=== PATIENT | male | born 1935 | race Caucasian/White ===

== ENCOUNTER 2025-04-19 13:53 | Inpatient (IN) | payer MEDICARE, SELFPAY ==
[2025-04-19] VITALS (7 sets, daily range): BP systolic 149–166; BP diastolic 71–92; PULSE 67–88; RESP 17–20; TEMP 36.6–37.2; O2SAT 95–100; BMI 26.3; BMI 24.2
--- NOTE | 2025-04-19 14:12 | EKG12_ITS ---
Test Reason : FALLS Blood Pressure : */* mmHG Vent. Rate : 82 BPM Atrial Rate : 82 BPM P-R Int : 184 ms QRS Dur : 140 ms QT Int : 422 ms P-R-T Axes : 57 -37 8 degrees QTcB Int : 493 ms Sinus rhythm with occasional Premature ventricular complexes Left axis deviation Right bundle branch block Inferior infarct , age undetermined Abnormal ECG Confirmed by SARAH LAINEZ ([id number]), subeditor NEGRA COFFMAN ([id number]) on 04/22/2025 9:08:05 AM Referred By: Confirmed By: SARAH LAINEZ
--- NOTE | 2025-04-19 14:12 | CT_ITS ---
PROCEDURE: BRAIN/HEAD WITHOUT CONTRAST; SPINE CERVICAL WITHOUT CONTRAS 04/19/2025 REASON FOR EXAM: FALLS; FALL TECHNIQUE: Procedure Code: CTBR; CTSPC Modality: CT Procedure: BRAIN/HEAD WITHOUT CONTRAST; SPINE CERVICAL WITHOUT CONTRAS Coronal and Sagittal reconstruction series were provided. One or more dose reduction techniques were used (e.g., Automated exposure control, adjustment of the mA and/or kV according to patient size, use of iterative reconstruction technique. COMPARISON: None available. FINDINGS: There is no extra-axial or intra-axial intracranial hemorrhage. No mass effect or midline shift is seen. Generalized intracranial volume loss and findings compatible with chronic microvascular white matter ischemia. There is normal cotto-white matter differentiation. The posterior fossa is grossly unremarkable. The skull is unremarkable. Visualized paranasal sinuses are clear. The mastoid air cells show normal translucency. The cervical alignment is intact. No acute cervical spine fracture is identified. The vertebral body heights are intact. No suspicious osseous lesions are identified. The craniocervical junction appears intact. There is no prevertebral soft tissue swelling. Advanced degenerate changes throughout the cervical spine with anterior bridging osteophytes noted from C2-C7. No severe neural foraminal or spinal canal stenosis.. The visualized lung apices are unremarkable. CT/Brain/Head without Contrast IMPRESSION: 1. No intracranial hemorrhage. No mass effect or midline shift. 2. Chronic involutional and ischemic gliotic white matter changes. 3. No evidence of acute cervical spine fracture or traumatic subluxation. 4. 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 Reading Location: [facility]
--- NOTE | 2025-04-19 14:13 | EDS_ITS ---
HPI History of Present Illness Chief Complaint: Fall Narrative Narrative: Patient is a 89-year-old male with who is unable to provide accurate history of present illness who presents to the emergency department with a chief complaint of multiple falls in the last week. According to EMS he fell yesterday was able to get up back in bed and has been there since 830. We do not have any records here to do chart review on therefore we will wait for members to arrive for further information. PFSH PFS Medical History unable to obtain Allergy/AdvReac Type Severity Reaction Status Date / Time No Known Allergies Allergy Verified 04/19/25 14:07 Social History Smoking Status: Former smoker ROS ROS ED ROS Narrative Constitutional: Denies any fevers, chills, headaches Eyes: Denies double vision Cardiovascular: Denies chest pain Respiratory: Shortness of breath Abdomen: Denies abdominal pain nausea vomit diarrhea : Denies urinary symptoms Neurological: Complains of generalized weakness denies numbness, tingling Musculoskeletal: Denies any pain Skin: Denies any rashes or lesions EXAM Physical Exam Narrative Exam Narrative: General: Patient was lying in bed rest comfortably did not appear to be in acute distress Head: Atraumatic, normocephalic Eyes: PERRL bilaterally, EOMI bilaterally, no conjunctival injection noted Neck: Soft, supple, trachea midline Cardiovascular: Regular rate and rhythm Respiratory: Clear to auscultation bilaterally Abdomen: Soft, nondistended, no tenderness to palpation no rebound or guarding on exam Musculoskeletal: All bony prominence palpated joints taken to full range of motion no pain elicited Extremities: +3/5 strength noted in the bilateral upper and lower extremities, no pedal edema no exam Neurological: Patient following commands and was able to tell us his name and that he was at the hospital Skin: Warm, dry, patient has anterior hassan abrasion noted on the right lower extremity no concern for infection at this point time Const Vital Signs: 04/19/25 13:54 04/19/25 14:08 04/19/25 16:00 Temperature 98.4 F 98.2 F Temperature Source Oral Oral Pulse Rate 88 80 Respiratory Rate 20 H 20 H Respiratory Effort Normal Non-Labored Respiratory Depth Normal Respiratory Pattern Normal Blood Pressure 152/78 H 166/80 H Blood Pressure Mean 102 108 Pulse Ox 99 97 Oxygen Delivery Method Room Air Room Air Room Air 04/19/25 17:00 04/19/25 17:20 Temperature 98.1 F 97.9 F Temperature Source Oral Pulse Rate 67 68 Respiratory Rate 19 H 17 Respiratory Effort Respiratory Depth Respiratory Pattern Blood Pressure 161/88 H 159/78 H Blood Pressure Mean 112 105 Pulse Ox 97 97 Oxygen Delivery Method Room Air MDM MDM MDM Narrative Medical decision making narrative: Patient is a 89-year-old male who presents to the emergency department the chief complaint of multiple falls. On the differential diagnose includes but not limited to intracranial hemorrhage, cervical spine fracture, electrolyte O'Ryan, UTI, generalized weakness. Once the workup is obtained and reviewed he will be reevaluated. Patient CBC was significant for leukocytosis of 18,000, hemoglobin 13.7, plate count 155. Patient sodium is 139, potassium normal 4.1, creatinine was 1.29 indicating acute kidney injury, total bilirubin elevated 4.19, AST and ALT are 15 and 18 respectively. Patient lipase noted be 10. Patient's urinalysis reviewed and showed positive nitrates 500 leukocyte esterase. Patient's x-ray of the pelvis reviewed by myself by radiology and showed degenerative changes noted no acute fracture or dislocation. Patient CT head brain without contrast showed no acute intracranial hemorrhage or mass effect no midline shift. Chronic involutional and ischemic with white matter changes. No evidence of acute cervical spine fracture or traumatic subluxation. Did add on a CT ab pelvis with IV contrast given his abnormal elevated bilirubin. Patient is EKG reviewed hide sinus rhythm with PVCs noted with a rate of 82 bpm with WI interval normal at 184. Patient CT ab pelvis with IV contrast showed multifocal lower lobe consolidations may reflect underlying pneumonia. Mild urinary bladder wall and mild surrounding fat stranding compatible with cystitis in the appropriate clinical setting. Urinalysis pending. Diverticulosis without diverticulitis. Heterogeneous prostamegaly. 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 Additional details as discussed. Patient test negative for COVID flu RSV. At this point time will discuss case with hospitalist for admission for generalized weakness and multiple falls as well as questionable pneumonia with UTI. Patient was given Rocephin and azithromycin at 1649. Discussed case with hospitalist Dr. Hudson who accept patient for admission. Patient notified is agreeable to plan all course concerns answered. Patient's daughter was also notified. Lab Data Labs: Laboratory Results - last 24 hr 04/19/25 04/19/25 14:20 16:00 WBC 18.6 H RBC 4.21 L Hgb 13.7 Hct 39.3 L MCV 93.3 MCH 32.5 H MCHC 34.9 RDW Std Deviation 46.8 H RDW Coeff of Mikki 13.7 Plt Count 155 MPV 10.0 Immature Gran % (Auto) 0.800 Neut % (Auto) 83.6 H Lymph % (Auto) 7.0 L [place] % (Auto) 8.4 Eos % (Auto) 0.0 Baso % (Auto) 0.2 Absolute Neuts (auto) 15.6 H Absolute Lymphs (auto) 1.31 Nucleated RBC % 0 Sodium 139 Potassium 4.1 Chloride 105 Carbon Dioxide 22.2 Anion Gap 12 BUN 27 H Creatinine 1.29 H Estim Creat Clear Calc 44.28 L Est GFR (MDRD) Non-Af 54 L BUN/Creatinine Ratio 20.5 H Glucose 122 H Calcium 8.1 Total Bilirubin 4.19 H AST 50 H ALT 18 Alkaline Phosphatase 80 Total Protein 5.1 L Albumin 3.3 L Globulin 1.8 L Albumin/Globulin Ratio 1.8 Lipase 10 L Urine Color Yellow Urine Clarity Sl. Cloudy Urine pH 6.0 Ur Specific [place] 1.020 Urine Protein 100 H Urine Glucose (UA) Normal Urine Ketones 15 H Urine Occult Blood 250 H Urine Nitrite Positive H Urine Bilirubin Negative Urine Urobilinogen Normal Ur Leukocyte Esterase 500 H Radiography Diagnostic Testing: Clinical Impression(s) from Imaging Studies Brain CT 04/19/25 14:12 IMPRESSION: 1. No intracranial hemorrhage. No mass effect or midline shift. 2. Chronic involutional and ischemic gliotic white matter changes. 3. No evidence of acute cervical spine fracture or traumatic subluxation. 4. 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 Reading Location: [facility] Cervical Spine CT 04/19/25 14:12 IMPRESSION: 1. No intracranial hemorrhage. No mass effect or midline shift. 2. Chronic involutional and ischemic gliotic white matter changes. 3. No evidence of acute cervical spine fracture or traumatic subluxation. 4. 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 Reading Location: [facility] Abdomen/Pelvis CT 04/19/25 15:45 IMPRESSION: 1. Multifocal lower lobe consolidations may reflect underlying pneumonia. 2. Mild urinary bladder wall thickening with mild surrounding fat stranding compatible with cystitis in the appropriate clinical setting. Please correlate with urinalysis. 3. Diverticulosis without evidence of diverticulitis. 4. Heterogeneous prostatomegaly. 5. 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 Consider MRCP for further characterization. 6. Additional details as discussed above. Reading Location: [facility] Pelvis X-Ray 04/19/25 15:50 IMPRESSION: Degenerative changes are seen of the visualized lower lumbar spine. Residual contrast material is seen within the visualized urinary tract collecting system. At least minimal sacroiliac joint degenerative changes are noted. Mild degenerative changes of the bilateral hip joints are seen, without significant joint space narrowing noted. No evidence of femoral head osteonecrosis. On the solitary view obtained, no fracture or dislocation is seen. If clinical concern persists, short-term follow-up imaging may be obtained to rule out a currently occult fracture. Reading Location: [id number] Discharge Plan Dx/Rx/DC Orders Clinical Impression: Generalized weakness, Multiple falls, Acute kidney injury, Pneumonia Disposition Disposition: Acute Care [facility]
[2025-04-19] MEDS: 0.9% Normal Saline (1000mL) 1,000 ML 999 ML IV (14:15)
[2025-04-19 14:42] LABS: Hematocrit 39.3 % (40-54); Hemoglobin 13.7 g/dL (13.0-16.5); Immature Granulocytes Count 0.150 X10^3/uL (0.0-0.0); Mean Corp Hgb Conc 34.9 g/dL (32-36); Mean Corpuscular Volume 93.3 fL (80-94); Mean Platelet Vol. 10.0 fl (6.2-12.0); NRBC Flagged by Analyzer 0 % (0-5); POSITIVE DIFFERENTIAL YES; Platelet Count 155 K/mm3 (150-450); RBC Distribution Width CV 13.7 % (11.6-14.6); RBC Distribution Width SD 46.8 fl (35.1-43.9); Red Blood Count 4.21 M/mm3 (4.6-6.2); White Blood Count 18.6 K/mm3 (4.4-11.0)
[2025-04-19 14:44] LABS: Differential Indicated SCAN CRITERIA MET
[2025-04-19 15:11] LABS: AST(SGOT) 50 U/L (<=37); Alanine Aminotransfer ALT/SGPT 18 U/L (<=46); Albumin, Serum 3.3 g/dL (3.4-4.8); Alkaline Phosphatase 80 U/L (40-129); Anion Gap 12 (5-15); BUN 27 mg/dL (4-19); BUN/Creat Ratio 20.5 RATIO (10-20); Calcium,Total 8.1 mg/dL (7.6-11.0); Carbon Dioxide 22.2 mmol/L (21.0-32.0); Chloride 105 mmol/L (98-108); Estimated Creatinine Clearance 44.28 ml/min (50-250); Globulin 1.8 g/dL (2.2-4.2); Glucose 122 mg/dL (70-99); Lipase 10 U/L (13-75); Potassium 4.1 mmol/L (3.3-5.1)
--- NOTE | 2025-04-19 15:45 | CT_ITS ---
PROCEDURE: ABDOMEN/PELVIS W IV CONT ONLY 04/19/2025 REASON FOR EXAM: WEAKNESS, MULTIPLE FALLS TECHNIQUE: Procedure Code: [id number] Modality: CT Procedure: ABDOMEN/PELVIS W IV CONT ONLY Coronal and Sagittal reconstruction series were provided. CONTRAST: Isovue-300 VOLUME: 100 mL One or more dose reduction techniques were used (e.g., Automated exposure control, adjustment of the mA and/or kV according to patient size, use of iterative reconstruction technique. RADIATION DOSE SUMMARY: DLP: 1016.16 mGycm COMPARISON: None available. FINDINGS: Lower chest: Bilateral lower low lobe multifocal consolidations. Trace bilateral pleural effusions. Liver: Normal size. Normal morphology and enhancement. No enhancing mass. Gallbladder and biliary ducts: Surgically absent. Normal caliber intrahepatic and common bile ducts. Pancreas:Atrophic pancreas. 8 x 7 mm pancreatic tail cystic lesion. No ductal dilatation or mass. No peripancreatic fluid. Spleen: Unremarkable. Adrenal glands: Unremarkable. Kidneys and ureters: Normal renal size, morphology, and enhancement. No nephroureterolithiasis or hydronephrosis. Multiple left parapelvic renal cysts. Nonspecific bilateral perinephric edema.. Urinary bladder: Mild thickening of the urinary bladder wall. There is mild fat stranding surrounding the bladder. GI: Unremarkable stomach and duodenum. Normal caliber small bowel and large bowel.Colonic diverticulosis without evidence of diverticulitis. Appendix: Not visualized. No secondary signs of acute appendicitis. Peritoneum: No ascites. Lymph nodes: No lymphadenopathy. Vasculature: Portal, splenic, and superior mesenteric veins are patent. No abdominal aortic aneurysm. Atherosclerotic calcification of the abdominal aorta and common iliac arteries. Reproductive organs: Heterogeneous appearing prostatic gland measuring a proximally 5.4 x 4.0 x 4.1 cm. The seminal vesicles are symmetrical. Musculoskeletal and soft tissues: No aggressive osseous lesions. Chronic appearing deformity of the inferior endplate of T12 vertebral body. Unremarkable soft tissues. CT/Abdomen/Pelvis W IV Cont ONLY IMPRESSION: 1. Multifocal lower lobe consolidations may reflect underlying pneumonia. 2. Mild urinary bladder wall thickening with mild surrounding fat stranding com patible with cystitis in the appropriate clinical setting. Please correlate with urinalysis. 3. Diverticulosis without evidence of diverticulitis. 4. Heterogeneous prostatomegaly. 5. 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 Consider MRCP for further charac terization. 6. Additional details as discussed above. Reading Location: [facility]
--- NOTE | 2025-04-19 15:50 | RAD_ITS ---
PROCEDURE: PELVIS 1 OR 2 VIEWS 04/19/2025 REASON FOR EXAM: FALL TECHNIQUE: Procedure Code: RADPEL Modality: DX Procedure: PELVIS 1 OR 2 VIEWS COMPARISON: None. RAD/Pelvis 1 or 2 Views IMPRESSION: Degenerative changes are seen of the visualized lower lumbar spine. Residual contrast material is seen within the visualized urinary tract collecti ng system. At least minimal sacroiliac joint degenerative changes are noted. Mild degenerative changes of the bilateral hip joints are seen, without signifi cant joint space narrowing noted. No evidence of femoral head osteonecrosis. On the solitary view obtained, no fracture or dislocation is seen. If clinical concern persists, short-term follow-up imaging may be obtained to r ule out a currently occult fracture. Reading Location: [id number]
[2025-04-19 16:23] LABS: Mucous, Urine 0 SEEN /hpf (<or=2+)
[2025-04-19 16:36] LABS: Color, Urine Yellow (Yellow); Glucose, Dipstick Normal (Normal); Ketone-Dipstick 15 mg/dl (Negative); Leukocyte Esterase-Dipstick 500 /ul (Negative); Nitrite-Dipstick Positive (Negative); Occult Blood-Urine 250 /ul (Negative); Protein-Dipstick 100 mg/dl (Negative); Specific Gravity, Urine 1.020 (1.002-1.030); Urine Bilirubin Dipstick Negative (Negative)
[2025-04-19 18:03] LABS: Red Blood Cells-Urine 10-25 SEEN /hpf (0-5)
[2025-04-19 18:04] LABS: Squamous Epithelial Cells - UA 0-5 SEEN /hpf (0-5)
--- NOTE | 2025-04-19 18:31 | HP.PCM.HOS_ITS ---
HPI - General General Date of Admission: 04/19/25 Date of Service: 04/19/25 Chief Complaint: Falls HPI Narrative BLAZE LUIS, is a 89-year-old male presented [facility] ED 04/19/25 with multiple falls over the past week. According the EMS he fell yesterday and got back up in bed and has been there since 830. In the ED temp 98.4, heart rate 88, blood pressure 152/78, respiratory rate 20 pulse ox 99% on room air. CBC with white count 18.6, hemoglobin 13.7, CMP with BUN of 27 and creatinine 1.29, total bili noted to be 4.19 with AST of 50 and ALT 18, lipase 10, UA with nitrite and leuk esterase and bacteria compatible with acute UTI. Pelvis x-ray with no overt fracture or dislocation, brain CT with chronic changes, CT spine no acute process. CT abdomen and pelvis with multifocal lower lobe consolidation which may reflect underlying pneumonia and mild urinary bladder wall thickening and fat stranding compatible with cystitis, additionally pancreatic tail cyst measuring up to 8 mm. Given patient with frequent falls and positive for UTI and possible pneumonia hospitalist contacted for admission. Patient evaluated at bedside, very poor historian and thinks he is at home, denies any recent falls and is upset when it was implied that he has had falls. Reports some chronic changes in vision, denies chest pain or shortness of breath, ROS otherwise entirely negative but again patient very poor historian and no family available at bedside. PFSH Medical History unable to obtain Home Medications ?Medication ?Instructions ?Recorded ?Last Taken ?Type allopurinol 100 mg tablet 200 mg PO DAILY 04/19/25 Unk nown History lisinopril 10 mg tablet 10 mg PO DAILY 04/19/25 Unkn own History metformin 500 mg tablet 500 mg PO BID 04/19/25 Unkno wn History Allergy/AdvReac Type Severity Reaction Status Date / Time No Known Allergies Allergy Verified 04/19/25 14:07 Social History Smoking Status: Former smoker ROS ROS Narrative General: Denies fever/chills HENT: Denies headache, denies stuffy nose, denies sore throat EYES: Some chronic changes in vision Resp: Denies cough, denies shortness of breath Cardiac: Denies chest pain GI: Denies abdominal pain, denies changes in bowel, denies nausea/vomiting : Denies changes in urination Extremity: Denies swelling MSK: Denies weakness Neuro: Denies any numbness/tingling Heme: Denies any bleeding or bruising Skin: Denies rashes Psychiatric: Patient irritable about being admitted Vital Signs Vital Signs Vital Signs: 04/19/25 13:54 04/19/25 14:08 04/19/25 16:00 Temperature 98.4 F 98.2 F Temperature Source Oral Oral Pulse Rate 88 80 Respiratory Rate 20 H 20 H Respiratory Effort Normal Non-Labored Respiratory Depth Normal Respiratory Pattern Normal Blood Pressure 152/78 H 166/80 H Blood Pressure Mean 102 108 Pulse Ox 99 97 Oxygen Delivery Method Room Air Room Air Room Air 04/19/25 17:00 04/19/25 17:20 04/19/25 18:00 Temperature 98.1 F 97.9 F 98.2 F Temperature Source Oral Oral Pulse Rate 67 68 73 Respiratory Rate 19 H 17 20 H Respiratory Effort Respiratory Depth Respiratory Pattern Blood Pressure 161/88 H 159/78 H 154/77 H Blood Pressure Mean 112 105 102 Pulse Ox 97 97 95 Oxygen Delivery Method Room Air Room Air Weight Weight: 88.1 kg Body Mass Index (BMI) 26.3 Physical Exam Narrative General: Alert, not oriented, does not appear acutely distressed HEENT: Atraumatic, normocephalic Eyes: Anicteric, normal conjunctiva, extraocular movements grossly intact Neck: Supple Respiratory: Little bit coarse at right lung base, normal respiratory effort Cardiovascular: Regular rate GI: Soft, nontender Extremities: No edema Musculoskeletal: Moving all extremities Neuro: No overt focal neurological deficits Skin: No rashes appreciated Psych: Somewhat irritable but ultimately cooperative Results Lab / Micro Data 04/19/25 14:20 04/19/25 14:20 Labs: Laboratory Results - last 24 hr 04/19/25 14:20: WBC 18.6 H, RBC 4.21 L, Hgb 13.7, Hct 39.3 L, MCV 93.3, MCH 32.5 H, MCHC 34.9, RDW Std Deviation 46.8 H, RDW Coeff of Mikki 13.7, Plt Count 155, MPV 10.0, Immature Gran % (Auto) 0.800, Neut % (Auto) 83.6 H, Lymph % (Auto) 7.0 L, [place] % (Auto) 8.4, Eos % (Auto) 0.0, Baso % (Auto) 0.2, Absolute Neuts (auto) 15.6 H, Absolute Lymphs (auto) 1.31, Nucleated RBC % 0, Sodium 139, Potassium 4.1, Chloride 105, Carbon Dioxide 22.2, Anion Gap 12, BUN 27 H, Creatinine 1.29 H, Estim Creat Clear Calc 44.28 L, Est GFR (MDRD) Non-Af 54 L, BUN/Creatinine Ratio 20.5 H, Glucose 122 H, Calcium 8.1, Total Bilirubin 4.19 H, AST 50 H, ALT 18, Alkaline Phosphatase 80, Total Protein 5.1 L, Albumin 3.3 L, Globulin 1.8 L, Albumin/Globulin Ratio 1.8, Lipase 10 L 04/19/25 16:00: Urine Color Yellow, Urine Clarity Sl. Cloudy, Urine pH 6.0, Ur Specific [place] 1.020, Urine Protein 100 H, Urine Glucose (UA) Normal, Urine Ketones 15 H, Urine Occult Blood 250 H, Urine Nitrite Positive H, Urine Bilirubin Negative, Urine Urobilinogen Normal, Ur Leukocyte Esterase 500 H, Urine RBC 10-25 SEEN, Urine WBC 50-100 SEEN, Ur Squamous Epith Cells 0-5 SEEN, Urine Bacteria 3+, Urine Mucus 0 SEEN Micro: Microbiology 04/19/25 14:10 Mucosa - Nose SARS-CoV-2, Influenza & RSV (PCR) - Final Imaging Radiology Impression Brain CT 04/19/25 14:12 IMPRESSION: 1. No intracranial hemorrhage. No mass effect or midline shift. 2. Chronic involutional and ischemic gliotic white matter changes. 3. No evidence of acute cervical spine fracture or traumatic subluxation. 4. 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 Reading Location: [facility] Cervical Spine CT 04/19/25 14:12 IMPRESSION: 1. No intracranial hemorrhage. No mass effect or midline shift. 2. Chronic involutional and ischemic gliotic white matter changes. 3. No evidence of acute cervical spine fracture or traumatic subluxation. 4. 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 Reading Location: [facility] Abdomen/Pelvis CT 04/19/25 15:45 IMPRESSION: 1. Multifocal lower lobe consolidations may reflect underlying pneumonia. 2. Mild urinary bladder wall thickening with mild surrounding fat stranding compatible with cystitis in the appropriate clinical setting. Please correlate with urinalysis. 3. Diverticulosis without evidence of diverticulitis. 4. Heterogeneous prostatomegaly. 5. 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 Consider MRCP for further characterization. 6. Additional details as discussed above. Reading Location: [facility] Pelvis X-Ray 04/19/25 15:50 IMPRESSION: Degenerative changes are seen of the visualized lower lumbar spine. Residual contrast material is seen within the visualized urinary tract collecting system. At least minimal sacroiliac joint degenerative changes are noted. Mild degenerative changes of the bilateral hip joints are seen, without significant joint space narrowing noted. No evidence of femoral head osteonecrosis. On the solitary view obtained, no fracture or dislocation is seen. If clinical concern persists, short-term follow-up imaging may be obtained to rule out a currently occult fracture. Reading Location: [address] Assessment & Plan Assessment/Plan (1) Generalized weakness: (2) Multiple falls: (3) UTI (urinary tract infection): (4) Pneumonia: PLAN: Plan # Acute urinary tract infection - UA with nitrite, leuk esterase, white cells, and bacteria - Urine culture - Will continue empiric antibiotics while awaiting culture and sensitivity data #Pneumonia -Imaging: Lung bases on the CT of the abdomen and pelvis with multifocal lower lobe consolidations which could reflect underlying pneumonia, will obtain a PA and lateral chest x-ray as able -Patient not presently reporting any shortness of breath or cough but patient is a very poor historian and also does not know where he is or that he has had any falls -Sputum culture if possible, COVID ordered, respiratory panel ordered -No hypoxia currently no wheezing so held off on ordering DuoNebs -Urine antigens -Rocephin and azithromycin # Multiple falls - Patient reportedly with multiple falls over the past week though patient currently denying - There was a question if he had laid in bed for any amount of time so CK was ordered -Pelvis x-ray as well as brain and cervical spine CT no acute process noted and patient present with no acute pain complaints -PT/OT - Case management consult #Elevated creatinine - BUN of 27 and creatinine 1.29 however no baseline available in our system - Gentle IV fluids - Certainly could be CKD but cannot rule out DG # Pancreatic tail cyst -CT noted a pancreatic tail cyst measuring up to 8 mm and recommended considering MRCP - Liver function tests in the a.m. -Does have an elevated bili of 4.19, AST of 50 and a normal ALT of 18 and alk phos of 80, unclear significance -Check direct bili - Repeat liver panel in a.m. - If patient more cooperative can consider MRCP tomorrow however presently fairly irritable and combative and still confused #Type 2 diabetes mellitus -Glucose checks and sliding scale insulin -Hold home metformin #Hypertension - Given creatinine of 1.29 without known baseline we will hold home lisinopril at this time # Suspected history of gout -Continue home allopurinol #DVT ppx: SCDs Monse Hudson MD Charges/Coding Visit Charges Inpatient E&M: 39126 Init Hosp L2
--- NOTE | 2025-04-19 18:37 | ED.RN ---
Antibiotics given late due to change in orders
[2025-04-19 20:56] LABS: Bilirubin, Direct 0.79 mg/dL (0.00-0.30)
[2025-04-19 21:10] LABS: CPK Total, Creatine Kinase 1494 U/L (24-195)
[2025-04-19] MEDS: Azithromycin 500 MG in 0.9% Normal Saline (250mL Bag) 250 ML 250 MG IV (21:22)
[2025-04-19] MEDS: 0.9% Normal Saline (1000mL) 1,000 ML 100 ML IV (21:23)
[2025-04-19] MEDS: 0.9% Saline Lock 10 ML Syringe IV (21:47)
[2025-04-19] MEDS: Senna/Docusate Sodium 1 Tablet 2 TABLET PO (21:47)
[2025-04-19] MEDS: MELATONIN 10 MG TABLET PO (21:47)
--- NOTE | 2025-04-19 22:09 | RAD_ITS ---
PROCEDURE: CHEST PA AND LATERAL 04/19/2025 REASON FOR EXAM: [id number] TECHNIQUE: Procedure Code: RADCXR Modality: DX Procedure: CHEST PA AND LATERAL COMPARISON: None available. FINDINGS: Hardware: None. Heart: The heart size is normal. Mediastinum: The mediastinal contour is unremarkable. Lungs: The lungs are clear. Bones: The bones are unremarkable. RAD/Chest PA and Lateral IMPRESSION: NO ACUTE FINDINGS. Reading Location: [facility]
[2025-04-20 03:00] VITALS: BP 138/78; PULSE 78; RESP 16; TEMP 36.9; O2SAT 99
[2025-04-20 05:47] LABS: Hematocrit 45.2 % (40-54); Hemoglobin 15.1 g/dL (13.0-16.5); Immature Granulocytes Count 0.140 X10^3/uL (0.0-0.0); Mean Corp Hgb Conc 33.4 g/dL (32-36); Mean Corpuscular Volume 96.2 fL (80-94); Mean Platelet Vol. 11.0 fl (6.2-12.0); NRBC Flagged by Analyzer 0 % (0-5); POSITIVE COUNT YES; POSITIVE DIFFERENTIAL YES; Platelet Count 135 K/mm3 (150-450); RBC Distribution Width CV 13.7 % (11.6-14.6); RBC Distribution Width SD 48.7 fl (35.1-43.9); Red Blood Count 4.70 M/mm3 (4.6-6.2); White Blood Count 17.3 K/mm3 (4.4-11.0)
[2025-04-20 05:57] LABS: Prothrombin Time (Protime)PT. 17.0 SECONDS (11.7-14.9)
[2025-04-20 06:24] LABS: AST(SGOT) 56 U/L (<=37); Alanine Aminotransfer ALT/SGPT 18 U/L (<=46); Albumin, Serum 3.5 g/dL (3.4-4.8); Alkaline Phosphatase 92 U/L (40-129); Anion Gap 13 (5-15); BUN 26 mg/dL (4-19); BUN/Creat Ratio 24.5 RATIO (10-20); Calcium,Total 8.8 mg/dL (7.6-11.0); Carbon Dioxide 21.0 mmol/L (21.0-32.0); Chloride 105 mmol/L (98-108); Estimated Creatinine Clearance 52.29 ml/min (50-250); Globulin 2.7 g/dL (2.2-4.2); Glucose 131 mg/dL (70-99); Potassium 4.1 mmol/L (3.3-5.1)
[2025-04-20 07:01] LABS: Differential Comment SCANNED; Differential Indicated SCAN CRITERIA MET
--- NOTE | 2025-04-20 07:33 | PCM.PN.HOSP ---
Reason for Visit Chief Complaint: Falls Objective Data Objective Data Vital Signs: Vital Signs Temp Pulse Resp BP Pulse Ox O2 Del Method 98.4 F 78 16 138/78 H 99 Room Air 04/20/25 03:00 04/20/25 03:00 04/20/25 03:00 04/20/25 03:00 04/20/25 03:00 04/20/25 03:15 Oxygen Delivery Method Room Air Weight: 176 lb 5.917 oz Body Mass Index (BMI) 24.2 Intake & Output: Intake and Output for Last 24 Hours 04/18/25 04/19/25 04/20/25 23:59 23:59 23:59 Intake Total 1750 / 1750 500 / 500 Output Total 650 / 650 Balance 1750 / 1500 -150 / -150 Lab / Micro Data 04/20/25 05:06 04/20/25 05:06 Labs: Laboratory Results - last 24 hr 04/19/25 14:20: WBC 18.6 H, RBC 4.21 L, Hgb 13.7, Hct 39.3 L, MCV 93.3, MCH 32.5 H, MCHC 34.9, RDW Std Deviation 46.8 H, RDW Coeff of Mikki 13.7, Plt Count 155, MPV 10.0, Immature Gran % (Auto) 0.800, Neut % (Auto) 83.6 H, Lymph % (Auto) 7.0 L, Cassia % (Auto) 8.4, Eos % (Auto) 0.0, Baso % (Auto) 0.2, Absolute Neuts (auto) 15.6 H, Absolute Lymphs (auto) 1.31, Nucleated RBC % 0, Sodium 139, Potassium 4.1, Chloride 105, Carbon Dioxide 22.2, Anion Gap 12, BUN 27 H, Creatinine 1.29 H, Estim Creat Clear Calc 44.28 L, Est GFR (MDRD) Non-Af 54 L, BUN/Creatinine Ratio 20.5 H, Glucose 122 H, Calcium 8.1, Total Bilirubin 4.19 H, AST 50 H, ALT 18, Alkaline Phosphatase 80, Total Protein 5.1 L, Albumin 3.3 L, Globulin 1.8 L, Albumin/Globulin Ratio 1.8, Lipase 10 L 04/19/25 16:00: Urine Color Yellow, Urine Clarity Sl. Cloudy, Urine pH 6.0, Ur Specific Byron 1.020, Urine Protein 100 H, Urine Glucose (UA) Normal, Urine Ketones 15 H, Urine Occult Blood 250 H, Urine Nitrite Positive H, Urine Bilirubin Negative, Urine Urobilinogen Normal, Ur Leukocyte Esterase 500 H, Urine RBC 10-25 SEEN, Urine WBC 50-100 SEEN, Ur Squamous Epith Cells 0-5 SEEN, Urine Bacteria 3+, Urine Mucus 0 SEEN 04/19/25 20:14: Direct Bilirubin 0.79 H, Total Creatine Kinase 1494 H 04/19/25 21:44: POC Glucose 139 H 04/20/25 05:06: WBC 17.3 H, RBC 4.70, Hgb 15.1, Hct 45.2, MCV 96.2 H, MCH 32.1 H, MCHC 33.4, RDW Std Deviation 48.7 H, RDW Coeff of Mikki 13.7, Plt Count 135 L, MPV 11.0, Immature Gran % (Auto) 0.800, Neut % (Auto) 77.7 H, Lymph % (Auto) 12.2 L, Cassia % (Auto) 8.8, Eos % (Auto) 0.2, Baso % (Auto) 0.3, Absolute Neuts (auto) 13.4 H, Absolute Lymphs (auto) 2.11, Nucleated RBC % 0, Differential Comment SCANNED, PT 17.0 H, INR 1.4, Sodium 139, Potassium 4.1, Chloride 105, Carbon Dioxide 21.0, Anion Gap 13, BUN 26 H, Creatinine 1.06, Estim Creat Clear Calc 52.29, Est GFR (MDRD) Non-Af 68, BUN/Creatinine Ratio 24.5 H, Glucose 131 H, Calcium 8.8, Total Bilirubin 3.61 H, AST 56 H, ALT 18, Alkaline Phosphatase 92, Total Protein 6.2, Albumin 3.5, Globulin 2.7, Albumin/Globulin Ratio 1.3 04/20/25 06:52: POC Glucose 127 H Micro: Microbiology 04/19/25 23:00 Mucosa - Nasopharyngeal Coronavirus COVID-19 PCR - Final 04/19/25 23:00 Mucosa - Nasopharyngeal Respiratory Panel (PCR) - Final 04/19/25 21:25 Urine, Clean Catch Legionella Antigen - Final 04/19/25 21:25 Urine, Clean Catch Streptococcus pneumoniae Antigen (M - Final 04/19/25 14:10 Mucosa - Nose SARS-CoV-2, Influenza & RSV (PCR) - Final Radiography Diagnostic Testing: Radiology Impression Brain CT 04/19/25 14:12 IMPRESSION: 1. No intracranial hemorrhage. No mass effect or midline shift. 2. Chronic involutional and ischemic gliotic white matter changes. 3. No evidence of acute cervical spine fracture or traumatic subluxation. 4. 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 Reading Location: [facility] Cervical Spine CT 04/19/25 14:12 IMPRESSION: 1. No intracranial hemorrhage. No mass effect or midline shift. 2. Chronic involutional and ischemic gliotic white matter changes. 3. No evidence of acute cervical spine fracture or traumatic subluxation. 4. 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 Reading Location: [facility] Abdomen/Pelvis CT 04/19/25 15:45 IMPRESSION: 1. Multifocal lower lobe consolidations may reflect underlying pneumonia. 2. Mild urinary bladder wall thickening with mild surrounding fat stranding compatible with cystitis in the appropriate clinical setting. Please correlate with urinalysis. 3. Diverticulosis without evidence of diverticulitis. 4. Heterogeneous prostatomegaly. 5. 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 Consider MRCP for further characterization. 6. Additional details as discussed above. Reading Location: [id number] Pelvis X-Ray 04/19/25 15:50 IMPRESSION: Degenerative changes are seen of the visualized lower lumbar spine. Residual contrast material is seen within the visualized urinary tract collecting system. At least minimal sacroiliac joint degenerative changes are noted. Mild degenerative changes of the bilateral hip joints are seen, without significant joint space narrowing noted. No evidence of femoral head osteonecrosis. On the solitary view obtained, no fracture or dislocation is seen. If clinical concern persists, short-term follow-up imaging may be obtained to rule out a currently occult fracture. Reading Location: [id number] Chest X-Ray 04/19/25 22:09 IMPRESSION: NO ACUTE FINDINGS. Reading Location: [facility] Physical Exam Narrative Seen and examined. Patient admitted multiple falls, about 3 in the last 1 month. Has bruise on the left leg. Denies cough/sputum production or shortness of breath. No fever. Denies lower urinary tract symptoms including burning Physical exam: General: Mild intermittent confusion. Oriented to place, sometimes disoriented to time. BMI 24.2 kg/m? HEENT: Atraumatic, PERRLA, EOMI, Normocephalic. Oral: No Gingival or Mucosal Lesions/ Ulcerations Neck: Supple, No JVD, Negative Carotid Bruits Chest wall/Lungs: Air entry diminished in bilateral lung bases. No wheezing or crepitations Cardiovascular: , No M/G/R Abdomen: Bowel Sounds Present, Soft, Non Tender, Non-Distended : No dysuria. Chronic urinary incontinence no renal angle tenderness. No suprapubic tenderness. Extremities: No edema, Capillary Refill Less than 3 Seconds Skin: Superficial skin Bujold right knee Musculoskeletal: Degenerative arthritis of knees, ROM mildly decreased. No Tenderness to Palpation of Joints or Extremities Neurological: Cranial nerves II-XII grossly intact, DTR 2+/4. No acute focal neurological deficit. Psych/Mental Status: Flat affect Assessment & Plan Assessment/Plan (1) Generalized weakness: (2) Multiple falls: (3) UTI (urinary tract infection): (4) Pneumonia: PLAN: Plan 89-year-old gentleman was admitted with feeling generalized weakness with several falls and remaining in the bed since morning of 04/18.Legs were too weak to get out of the bed 1. Abnormal UA- UA with nitrite, leuk esterase, white cells, and bacteria: Urine culture shows no growth. UTI ruled out. #Pneumonia -Imaging: Lung bases on the CT of the abdomen and pelvis with multifocal lower lobe consolidations: Surprisingly patient does not have cough shortness of breath or sputum production or fever but patient has mild dementia. Triple PCR for SARS-CoV-2, flu and RSV are negative. Respiratory panel negative. Urinary antigens negative. Continue IV ceftriaxone and azithromycin. Patient has leukocytosis 18.6 thousand, bili neutrophilia. Slight improvement 04/20 - # Multiple falls with mild rhabdomyolysis - Patient reportedly with multiple falls over the past week though patient currently denying states her daughter exaggerate it. PT and OT. CT head C-spine and pelvics did not show acute process. Case management consult CK is 1494. Continue IV fluid slowest. # CKD stage IIIa - BUN of 27 and creatinine 1.29 however no baseline available in our system - Was given IV fluid, discontinued. Creatinine improved to 1.06. 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 No ductal dilation or mass. No peripancreatic fluid. Cyst is less than a centimeter. Liver normal size with normal morphology enhancement. No enhancing mass. Cholecystectomy. Normal caliber intra and extrahepatic bile ducts. Liver chemistry shows improvement in total bilirubin 4.19, direct 0.79, improved to 3.61/0.87. Therefore mainly indirect hyperbilirubinemia. AST 56. CK 1494. Injury from hypotension may be related to dysfunction bilirubin conjugation/increased uptake of indirect bilirubin. CT abdomen does not account for indirect hyperbilirubinemia and increased AST. Follow-up with tooling specialist as an outpatient. AST may be from increased rhabdomyolysis/muscle source as CPK is 1494. #Type 2 diabetes mellitus -Glucose checks and sliding scale insulin -Hold home metformin #Hypertension - Given creatinine of 1.29 without known baseline we will hold home lisinopril at this time # Suspected history of gout -Continue home allopurinol #DVT ppx: SCDs Microbiology Past 72 Hours 04/19/25 21:25 Urine, Clean Catch Urine Culture - Preliminary Culture exhibits no growth. 04/19/25 23:00 Mucosa - Nasopharyngeal Coronavirus COVID-19 PCR - Final 04/19/25 23:00 Mucosa - Nasopharyngeal Respiratory Panel (PCR) - Final 04/19/25 21:25 Urine, Clean Catch Legionella Antigen - Final 04/19/25 21:25 Urine, Clean Catch Streptococcus pneumoniae Antigen (M - Final 04/19/25 14:10 Mucosa - Nose SARS-CoV-2, Influenza & RSV (PCR) - Final Laboratory Results 04/19/25 14:20: WBC 18.6 H, RBC 4.21 L, Hgb 13.7, Hct 39.3 L, MCV 93.3, MCH 32.5 H, MCHC 34.9, RDW Std Deviation 46.8 H, RDW Coeff of Mikki 13.7, Plt Count 155, MPV 10.0, Immature Gran % (Auto) 0.800, Neut % (Auto) 83.6 H, Lymph % (Auto) 7.0 L, Cassia % (Auto) 8.4, Eos % (Auto) 0.0, Baso % (Auto) 0.2, Absolute Neuts (auto) 15.6 H, Absolute Lymphs (auto) 1.31, Nucleated RBC % 0, Sodium 139, Potassium 4.1, Chloride 105, Carbon Dioxide 22.2, Anion Gap 12, BUN 27 H, Creatinine 1.29 H, Estim Creat Clear Calc 44.28 L, Est GFR (MDRD) Non-Af 54 L, BUN/Creatinine Ratio 20.5 H, Glucose 122 H, Calcium 8.1, Total Bilirubin 4.19 H, AST 50 H, ALT 18, Alkaline Phosphatase 80, Total Protein 5.1 L, Albumin 3.3 L, Globulin 1.8 L, Albumin/Globulin Ratio 1.8, Lipase 10 L 04/19/25 16:00: Urine Color Yellow, Urine Clarity Sl. Cloudy, Urine pH 6.0, Ur Specific Byron 1.020, Urine Protein 100 H, Urine Glucose (UA) Normal, Urine Ketones 15 H, Urine Occult Blood 250 H, Urine Nitrite Positive H, Urine Bilirubin Negative, Urine Urobilinogen Normal, Ur Leukocyte Esterase 500 H, Urine RBC 10-25 SEEN, Urine WBC 50-100 SEEN, Ur Squamous Epith Cells 0-5 SEEN, Urine Bacteria 3+, Urine Mucus 0 SEEN 04/19/25 20:14: Direct Bilirubin 0.79 H, Total Creatine Kinase 1494 H 04/19/25 21:44: POC Glucose 139 H 04/20/25 05:06: WBC 17.3 H, RBC 4.70, Hgb 15.1, Hct 45.2, MCV 96.2 H, MCH 32.1 H, MCHC 33.4, RDW Std Deviation 48.7 H, RDW Coeff of Mikki 13.7, Plt Count 135 L, MPV 11.0, Immature Gran % (Auto) 0.800, Neut % (Auto) 77.7 H, Lymph % (Auto) 12.2 L, Cassia % (Auto) 8.8, Eos % (Auto) 0.2, Baso % (Auto) 0.3, Absolute Neuts (auto) 13.4 H, Absolute Lymphs (auto) 2.11, Nucleated RBC % 0, Differential Comment SCANNED, PT 17.0 H, INR 1.4, Sodium 139, Potassium 4.1, Chloride 105, Carbon Dioxide 21.0, Anion Gap 13, BUN 26 H, Creatinine 1.06, Estim Creat Clear Calc 52.29, Est GFR (MDRD) Non-Af 68, BUN/Creatinine Ratio 24.5 H, Glucose 131 H, Calcium 8.8, Total Bilirubin 3.61 H, Direct Bilirubin 0.87 H, AST 56 H, ALT 18, Alkaline Phosphatase 92, Total Protein 6.2, Albumin 3.5, Globulin 2.7, Albumin/Globulin Ratio 1.3 04/20/25 06:52: POC Glucose 127 H 04/20/25 11:52: POC Glucose 181 H Charges/Coding Visit Charges Inpatient E&M: 13250 Subs Hosp L2
[2025-04-20 09:12] LABS: Bilirubin, Direct 0.87 mg/dL (0.00-0.30)
[2025-04-20] MEDS: Senna/Docusate Sodium 1 Tablet 2 TABLET PO ×2 (09:50→22:59)
[2025-04-20] MEDS: Azithromycin 500 MG in 0.9% Normal Saline (250mL Bag) 250 ML 250 MG IV (09:55)
[2025-04-20] MEDS: 0.9% Saline Lock 10 ML Syringe IV (09:56)
[2025-04-20 10:03] VITALS: BP 149/72; PULSE 78; RESP 16; TEMP 36.6; O2SAT 99
--- NOTE | 2025-04-20 15:32 | CASEMGMT ---
SW Assessment: Pt unable to complete assessment due to confusion. SW called pt dtr and Kiara SANTOYO, to complete assessment vis telephone. PCP: Maia Toth Pharmacy: [facility] Insurance: [facility] Prescription Benefit: yes LNOK: Pt has 3 daughters and of 65 years, who has advanced dementia Living Arrangements: Pt lives in a one story home with 2 small steps from the garage. Pt cares for with advanced dementia. Pt typically uses a cane or no assistive device, although did use a ww following a fall that led to a SNF in July of 2024. Pt typically bathes and dresses self and is mostly independent. Transportation: Pt has not driven since July 2024 DME: marquita, cane, grab bars HHC/SNF: [facility] at the end 2023. It was a poor experience and pt dtr does not want p to return. Pt dtr reports [facility] came to assess, but never made visits; name unknown. Pt dtr reports that she and her sisters are staying with pt 14/02 while pt is hospitalized. Pt dtr reports that they feel pt and need a SNF. Pt dtr reports that pt had significant decline over the previous week and was in bed from at 16:30 until the squad brought him to hospital due to legs not working. Pt dtr requests SNF list. A list of SNF providers including quality and resource use data and consistent with the patient?s preferred geographic region, medical needs, and insurance network were provided via the [employer] [place] Guide Link. SW remains available to follow. ANDREA Marie
[2025-04-20 15:47] VITALS: BP 157/62; PULSE 72; RESP 18; TEMP 36.5; O2SAT 95
[2025-04-20] MEDS: 0.9% Normal Saline (1000mL) 1,000 ML 50 ML IV (16:19)
[2025-04-20] MEDS: 0.9% Normal Saline (250mL Bag) 250 ML 15 ML IV (17:15)
[2025-04-20 22:55] VITALS: BP 141/72; PULSE 72; RESP 18; TEMP 36.8; O2SAT 94
[2025-04-20] MEDS: MELATONIN 10 MG TABLET PO (22:59)
[2025-04-21 04:11] VITALS: BP 148/72; PULSE 62; RESP 18; TEMP 36.9; O2SAT 97
[2025-04-21 04:52] LABS: Hematocrit 44.5 % (40-54); Hemoglobin 15.6 g/dL (13.0-16.5); Immature Granulocytes Count 0.100 X10^3/uL (0.0-0.0); Immature Reticulocyte Fraction 11.90 % (3.00-15.90); Mean Corp Hgb Conc 35.1 g/dL (32-36); Mean Corpuscular Volume 92.9 fL (80-94); Mean Platelet Vol. 10.5 fl (6.2-12.0); NRBC Flagged by Analyzer 0 % (0-5); Platelet Count 176 K/mm3 (150-450); RBC Distribution Width CV 13.8 % (11.6-14.6); RBC Distribution Width SD 47.0 fl (35.1-43.9); Red Blood Count 4.79 M/mm3 (4.6-6.2); Reticulocyte Count 1.52 % (0.5-1.5); White Blood Count 12.8 K/mm3 (4.4-11.0)
[2025-04-21 04:56] LABS: AST(SGOT) 54 U/L (<=37); Alanine Aminotransfer ALT/SGPT 22 U/L (<=46); Albumin, Serum 3.4 g/dL (3.4-4.8); Alkaline Phosphatase 102 U/L (40-129); Bilirubin, Direct 0.88 mg/dL (0.00-0.30); CPK Total, Creatine Kinase 820 U/L (24-195); Globulin 3.0 g/dL (2.2-4.2)
[2025-04-21 05:11] LABS: LDH 250 U/L (87-241)
[2025-04-21] MEDS: Azithromycin 500 MG in 0.9% Normal Saline (250mL Bag) 250 ML 250 MG IV (08:39)
[2025-04-21] MEDS: Senna/Docusate Sodium 1 Tablet 2 TABLET PO ×2 (08:45→23:10)
[2025-04-21 08:49] VITALS: BP 157/85; PULSE 77; RESP 17; TEMP 36.4; O2SAT 97
--- NOTE | 2025-04-21 10:46 | PCM.PN.HOSP ---
Reason for Visit Chief Complaint: Falls Objective Data Objective Data Vital Signs: Vital Signs Temp Pulse Resp BP Pulse Ox O2 Del Method 97.5 F L 77 17 157/85 H 97 Room Air 04/21/25 08:49 04/21/25 08:49 04/21/25 08:49 04/21/25 08:49 04/21/25 08:49 04/21/25 08:49 Oxygen Delivery Method Room Air Weight: 176 lb 5.917 oz Body Mass Index (BMI) 24.2 Intake & Output: Intake and Output for Last 24 Hours 04/19/25 04/20/25 04/21/25 23:59 23:59 23:59 Intake Total 1750 / 1750 800 / 800 358 / 358 Output Total 650 / 650 200 / 200 Balance 1750 / 1500 150 / 150 158 / 158 Lab / Micro Data 04/21/25 04:05 04/20/25 05:06 Labs: Laboratory Results - last 24 hr 04/20/25 11:52: POC Glucose 181 H 04/20/25 17:07: POC Glucose 121 H 04/20/25 23:00: POC Glucose 204 H 04/21/25 04:05: WBC 12.8 H, RBC 4.79, Hgb 15.6, Hct 44.5, MCV 92.9, MCH 32.6 H, MCHC 35.1 D, RDW Std Deviation 47.0 H, RDW Coeff of Mikki 13.8, Plt Count 176, MPV 10.5, Immature Gran % (Auto) 0.800, Neut % (Auto) 72.8 H, Lymph % (Auto) 16.4 L, Runnels % (Auto) 8.8, Eos % (Auto) 0.9, Baso % (Auto) 0.3, Absolute Neuts (auto) 9.3 H, Absolute Lymphs (auto) 2.10, Nucleated RBC % 0, Retic Count 1.52 H, Immature Retic Fraction 11.90, Retic Hgb Equivalent 33.4, Total Bilirubin 2.79 H, Direct Bilirubin 0.88 H, AST 54 H, ALT 22, Alkaline Phosphatase 102, Lactate Dehydrogenase 250 H, Total Creatine Kinase 820 H, Total Protein 6.4, Albumin 3.4, Globulin 3.0 04/21/25 06:44: POC Glucose 112 H Micro: Microbiology 04/19/25 21:25 Urine, Clean Catch Urine Culture - Final Mixed Gram Positive Organisms 04/19/25 23:00 Mucosa - Nasopharyngeal Coronavirus COVID-19 PCR - Final 04/19/25 23:00 Mucosa - Nasopharyngeal Respiratory Panel (PCR) - Final 04/19/25 21:25 Urine, Clean Catch Legionella Antigen - Final 04/19/25 21:25 Urine, Clean Catch Streptococcus pneumoniae Antigen (M - Final 04/19/25 14:10 Mucosa - Nose SARS-CoV-2, Influenza & RSV (PCR) - Final Physical Exam Narrative Seen and examined. Patient admitted multiple falls, about 3 in the last 1 month as per the patient but about 3 times in last 1 week as per the daughter patient might be wrong as he seems more forgetful sometimes confused.. Has bruise on the left leg. Denies cough/sputum production or shortness of breath. No fever. Denies lower urinary tract symptoms including burning. Did not move bowels since admission Physical exam: General: Mild intermittent confusion. Oriented to place, forgetful. BMI 24.2 kg/m? HEENT: Atraumatic, PERRLA, EOMI, Normocephalic. Oral: No Gingival or Mucosal Lesions/ Ulcerations Neck: Supple, No JVD, Negative Carotid Bruits Chest wall/Lungs: Air entry diminished in bilateral lung bases. No wheezing or crepitations Cardiovascular: Sinus rhythm, No M/G/R Abdomen: Bowel Sounds Present, Soft, Non Tender, Non-Distended : No dysuria. Chronic urinary incontinence no renal angle tenderness. No suprapubic tenderness. Extremities: No edema, Capillary Refill Less than 3 Seconds Skin: Superficial skin Bujold right knee Musculoskeletal: Degenerative arthritis of knees, ROM mildly decreased. No Tenderness to Palpation of Joints or Extremities Neurological: Cranial nerves II-XII grossly intact, DTR 2+/4. No acute focal neurological deficit. Psych/Mental Status: Flat affect forgetful/possible early dementia Assessment & Plan Assessment/Plan (1) Generalized weakness: (2) Multiple falls: (3) UTI (urinary tract infection): (4) Pneumonia: PLAN: Plan 89-year-old gentleman was admitted with feeling generalized weakness with several falls and remaining in the bed since morning of 04/18.Legs were too weak to get out of the bed 1. Abnormal UA- UA with nitrite, leuk esterase, white cells, and bacteria: Urine culture shows no growth. UTI ruled out. 2. #Pneumonia -Imaging: Lung bases on the CT of the abdomen and pelvis with multifocal lower lobe consolidations: Surprisingly patient does not have cough shortness of breath or sputum production or fever but patient has mild dementia. Triple PCR for SARS-CoV-2, flu and RSV are negative. Respiratory panel negative. Urinary antigens negative. Continue IV ceftriaxone and azithromycin. Patient has leukocytosis 18.6 thousand, bili neutrophilia. Slight improvement 04/20 -04/21: Leukocytosis has much improved about 12,800 today. Not having any signs of active fever or pneumonia. Continue IV antibiotics # Multiple falls with mild rhabdomyolysis - Patient reportedly with multiple falls over the past week though patient currently denying states her daughter exaggerate it. PT and OT. CT head C-spine and pelvics did not show acute process. Case management consult CK is 1494. Continue IV fluid slowest. 04/21 CPK also improved about 800 today. Continue physical therapy. Talked to the daughter, he is POA today. She said he fell down 3 times in the last 1 week and wanted rehab. Plan for possible rehab. On a stool softener for mild constipation, has not moved bowels since admission. # CKD stage IIIa - BUN of 27 and creatinine 1.29 however no baseline available in our system - Was given IV fluid, discontinued. Creatinine improved to 1.06. 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 No ductal dilation or mass. No peripancreatic fluid. Cyst is less than a centimeter. Liver normal size with normal morphology enhancement. No enhancing mass. Cholecystectomy. Normal caliber intra and extrahepatic bile ducts. Liver chemistry shows improvement in total bilirubin 4.19, direct 0.79, improved to 3.61/0.87. Therefore mainly indirect hyperbilirubinemia. AST 56. CK 1494. Injury from hypotension may be related to dysfunction bilirubin conjugation/increased uptake of indirect bilirubin. CT abdomen does not account for indirect hyperbilirubinemia and increased AST. Follow-up with multiple effect evaporator operator as an outpatient. AST may be from increased rhabdomyolysis/muscle source as CPK is 1494. #Type 2 diabetes mellitus -Glucose checks and sliding scale insulin -Hold home metformin #Hypertension - Given creatinine of 1.29 without known baseline we will hold home lisinopril at this time # Suspected history of gout -Continue home allopurinol #DVT ppx: SCDs Microbiology Past 72 Hours 04/19/25 21:25 Urine, Clean Catch Urine Culture - Preliminary Culture exhibits no growth. 04/19/25 23:00 Mucosa - Nasopharyngeal Coronavirus COVID-19 PCR - Final 04/19/25 23:00 Mucosa - Nasopharyngeal Respiratory Panel (PCR) - Final 04/19/25 21:25 Urine, Clean Catch Legionella Antigen - Final 04/19/25 21:25 Urine, Clean Catch Streptococcus pneumoniae Antigen (M - Final 04/19/25 14:10 Mucosa - Nose SARS-CoV-2, Influenza & RSV (PCR) - Final Laboratory Results 04/19/25 14:20: WBC 18.6 H, RBC 4.21 L, Hgb 13.7, Hct 39.3 L, MCV 93.3, MCH 32.5 H, MCHC 34.9, RDW Std Deviation 46.8 H, RDW Coeff of Mikki 13.7, Plt Count 155, MPV 10.0, Immature Gran % (Auto) 0.800, Neut % (Auto) 83.6 H, Lymph % (Auto) 7.0 L, Runnels % (Auto) 8.4, Eos % (Auto) 0.0, Baso % (Auto) 0.2, Absolute Neuts (auto) 15.6 H, Absolute Lymphs (auto) 1.31, Nucleated RBC % 0, Sodium 139, Potassium 4.1, Chloride 105, Carbon Dioxide 22.2, Anion Gap 12, BUN 27 H, Creatinine 1.29 H, Estim Creat Clear Calc 44.28 L, Est GFR (MDRD) Non-Af 54 L, BUN/Creatinine Ratio 20.5 H, Glucose 122 H, Calcium 8.1, Total Bilirubin 4.19 H, AST 50 H, ALT 18, Alkaline Phosphatase 80, Total Protein 5.1 L, Albumin 3.3 L, Globulin 1.8 L, Albumin/Globulin Ratio 1.8, Lipase 10 L 04/19/25 16:00: Urine Color Yellow, Urine Clarity Sl. Cloudy, Urine pH 6.0, Ur Specific Florien 1.020, Urine Protein 100 H, Urine Glucose (UA) Normal, Urine Ketones 15 H, Urine Occult Blood 250 H, Urine Nitrite Positive H, Urine Bilirubin Negative, Urine Urobilinogen Normal, Ur Leukocyte Esterase 500 H, Urine RBC 10-25 SEEN, Urine WBC 50-100 SEEN, Ur Squamous Epith Cells 0-5 SEEN, Urine Bacteria 3+, Urine Mucus 0 SEEN 04/19/25 20:14: Direct Bilirubin 0.79 H, Total Creatine Kinase 1494 H 04/19/25 21:44: POC Glucose 139 H 04/20/25 05:06: WBC 17.3 H, RBC 4.70, Hgb 15.1, Hct 45.2, MCV 96.2 H, MCH 32.1 H, MCHC 33.4, RDW Std Deviation 48.7 H, RDW Coeff of Mikki 13.7, Plt Count 135 L, MPV 11.0, Immature Gran % (Auto) 0.800, Neut % (Auto) 77.7 H, Lymph % (Auto) 12.2 L, Runnels % (Auto) 8.8, Eos % (Auto) 0.2, Baso % (Auto) 0.3, Absolute Neuts (auto) 13.4 H, Absolute Lymphs (auto) 2.11, Nucleated RBC % 0, Differential Comment SCANNED, PT 17.0 H, INR 1.4, Sodium 139, Potassium 4.1, Chloride 105, Carbon Dioxide 21.0, Anion Gap 13, BUN 26 H, Creatinine 1.06, Estim Creat Clear Calc 52.29, Est GFR (MDRD) Non-Af 68, BUN/Creatinine Ratio 24.5 H, Glucose 131 H, Calcium 8.8, Total Bilirubin 3.61 H, Direct Bilirubin 0.87 H, AST 56 H, ALT 18, Alkaline Phosphatase 92, Total Protein 6.2, Albumin 3.5, Globulin 2.7, Albumin/Globulin Ratio 1.3 04/20/25 06:52: POC Glucose 127 H 04/20/25 11:52: POC Glucose 181 H Charges/Coding Visit Charges Inpatient E&M: 18377 Subs Hosp L2
[2025-04-21] MEDS: Polyethylene Glycol 3350 17 GM PACKET PO ×2 (11:42→23:10)
[2025-04-21] MEDS: 0.9% Saline Lock 10 ML Syringe IV (15:54)
[2025-04-21 16:07] VITALS: BP 143/78; PULSE 58; RESP 17; TEMP 36.4; O2SAT 99
[2025-04-21 16:56] VITALS: PULSE 58
[2025-04-21 22:42] VITALS: BP 145/80; PULSE 70; RESP 16; TEMP 36.5; O2SAT 99
[2025-04-21] MEDS: MELATONIN 10 MG TABLET PO (23:11)
[2025-04-22 04:40] VITALS: BP 144/68; PULSE 70; RESP 18; TEMP 36.7; O2SAT 98
--- NOTE | 2025-04-22 05:55 | US_ITS ---
PROCEDURE: ABDOMEN LIMITED 04/22/2025 REASON FOR EXAM: INDIRECT HYPERBILIRUBINEMIA TECHNIQUE: Procedure Code: USABDL Modality: US Procedure: ABDOMEN LIMITED COMPARISON: None FINDINGS: GALLBLADDER: Surgically removed. COMMON BILE DUCT: Measures 5.2 Mm. No intrahepatic biliary dilatation. LIVER: Minimal hepatomegaly to 16.9 cm. Slightly coarse echotexture. No definite hepatic mass. RIGHT KIDNEY: Normal in size and echogenicity. No mass. No urinary stones. No hydronephrosis. Pancreas: Limited visibility. US/Abdomen Limited IMPRESSION: Slightly coarse echotexture of the liver. Minimal hepatomegaly. Reading Location: [id number]
[2025-04-22 06:11] LABS: Hematocrit 44.0 % (40-54); Hemoglobin 14.9 g/dL (13.0-16.5); Immature Granulocytes Count 0.150 X10^3/uL (0.0-0.0); Mean Corp Hgb Conc 33.9 g/dL (32-36); Mean Corpuscular Volume 94.0 fL (80-94); Mean Platelet Vol. 10.0 fl (6.2-12.0); NRBC Flagged by Analyzer 0 % (0-5); Platelet Count 203 K/mm3 (150-450); RBC Distribution Width CV 13.6 % (11.6-14.6); RBC Distribution Width SD 47.0 fl (35.1-43.9); Red Blood Count 4.68 M/mm3 (4.6-6.2); White Blood Count 8.9 K/mm3 (4.4-11.0)
[2025-04-22 07:58] LABS: AST(SGOT) 40 U/L (<=37); Alanine Aminotransfer ALT/SGPT 25 U/L (<=46); Albumin, Serum 3.2 g/dL (3.4-4.8); Alkaline Phosphatase 81 U/L (40-129); Bilirubin, Direct 0.58 mg/dL (0.00-0.30); Globulin 2.6 g/dL (2.2-4.2)
--- NOTE | 2025-04-22 09:05 | CASEMGMT ---
Addendum entered by Candi Kiser 04/22/25 12:37: [facility] Candi Kiser DC Planning Asst. Original Note: Discharge Planning Referral sent to [facility]. Candi Kiser DC Planning Asst.
--- NOTE | 2025-04-22 09:29 | CASEMGMT ---
Social Work Pt's daughter had responded in [facility] that [facility] would be their choice for SNF. Candi, d/c planning manager, sent referral. SW called daughter/POCatalina Craig to verify and get additional choices. She states [facility] is their first choice, if [facility] cannot take pt they would want [facility]. Daughter inquired if pt aware of plan, SW explained SW has not spoken w/pt as of yet. SW and daughter will plan to speak w/pt together when daughter arrives later this morning. Kiara also plans to ring in POA documentation. SW will continue to follow. JASS Galvan
[2025-04-22] MEDS: 0.9% Saline Lock 10 ML Syringe IV ×2 (09:30→21:34)
[2025-04-22] MEDS: Azithromycin 500 MG in 0.9% Normal Saline (250mL Bag) 250 ML 250 MG IV (09:31)
[2025-04-22 09:55] VITALS: BP 142/72; PULSE 68; RESP 18; TEMP 36.8; O2SAT 98
--- NOTE | 2025-04-22 10:06 | CASEMGMT ---
Social Work Pt's daughter Kiara is here, she also brought in POA for healthcare, she is POA, papers placed on chart. SW spoke w/pt and daughter in room. Pt agreeable to SNF for short term, SW explained a referral has been sent to the [facility]. Pt's and another daughter came in to see pt as well. SW let pt and Kiara know that as soon as we hear back from [facility] will let them know. SW also did review w/pt and family SNF coverage through Medicare. SW will continue to follow, waiting to hear from [facility]. JASS Galvan
--- NOTE | 2025-04-22 12:19 | PN.HOSP_ITS ---
Reason for Visit Chief Complaint: Falls Objective Data Objective Data Vital Signs: Vital Signs Temp Pulse Resp BP Pulse Ox O2 Del Method 98.3 F 68 18 142/72 H 98 Room Air 04/22/25 09:55 04/22/25 09:55 04/22/25 09:55 04/22/25 09:55 04/22/25 09:55 04/22/25 09:56 Oxygen Delivery Method Room Air Weight: 176 lb 5.917 oz Body Mass Index (BMI) 24.2 Intake & Output: Intake and Output for Last 24 Hours 04/20/25 04/21/25 04/22/25 23:59 23:59 23:59 Intake Total 800 / 800 1927.17 / 1927.17 250 / 250 Output Total 650 / 650 900 / 900 400 / 400 Balance 150 / 150 1027.17 / 1027.17 -150 / -150 Lab / Micro Data 04/22/25 05:43 04/20/25 05:06 Labs: Laboratory Results - last 24 hr 04/21/25 15:52: POC Glucose 130 H 04/21/25 23:09: POC Glucose 130 H 04/22/25 05:43: WBC 8.9, RBC 4.68, Hgb 14.9, Hct 44.0, MCV 94.0, MCH 31.8, MCHC 33.9, RDW Std Deviation 47.0 H, RDW Coeff of Mikki 13.6, Plt Count 203, MPV 10.0, Immature Gran % (Auto) 1.700 H, Neut % (Auto) 55.7, Lymph % (Auto) 23.5, [place] % (Auto) 13.6 H, Eos % (Auto) 4.7, Baso % (Auto) 0.8, Absolute Neuts (auto) 5.0, Absolute Lymphs (auto) 2.10, Nucleated RBC % 0, Total Bilirubin 1.55 H, Direct Bilirubin 0.58 H, AST 40 H, ALT 25, Alkaline Phosphatase 81, Total Protein 5.8 L , Albumin 3.2 L, Globulin 2.6 04/22/25 06:46: POC Glucose 146 H 04/22/25 11:07: POC Glucose 157 H Micro: Microbiology 04/19/25 21:25 Urine, Clean Catch Urine Culture - Final Mixed Gram Positive Organisms 04/19/25 23:00 Mucosa - Nasopharyngeal Coronavirus COVID-19 PCR - Final 04/19/25 23:00 Mucosa - Nasopharyngeal Respiratory Panel (PCR) - Final 04/19/25 21:25 Urine, Clean Catch Legionella Antigen - Final 04/19/25 21:25 Urine, Clean Catch Streptococcus pneumoniae Antigen (M - Final 04/19/25 14:10 Mucosa - Nose SARS-CoV-2, Influenza & RSV (PCR) - Final Physical Exam Narrative Seen and examined. No acute issues Patient was admitted multiple falls, about 3 times in last 1 week as per the daughter. Patient does not have a good memory or recall or registration. Denies cough/sputum production or shortness of breath. No fever. Denies lower urinary tract symptoms including burning. Did not move bowels since admission Physical exam: General: Mild intermittent confusion. Oriented to place, forgetful. BMI 24.2 kg/m? HEENT: Atraumatic, PERRLA, EOMI, Normocephalic. Oral: No Gingival or Mucosal Lesions/ Ulcerations Neck: Supple, No JVD, Negative Carotid Bruits Chest wall/Lungs: Air entry diminished in bilateral lung bases. No wheezing or crepitations Cardiovascular: Sinus rhythm, No M/G/R Abdomen: Bowel Sounds Present, Soft, Non Tender, Non-Distended : No dysuria. Chronic urinary incontinence no renal angle tenderness. No suprapubic tenderness. Extremities: No edema, Capillary Refill Less than 3 Seconds Skin: Superficial skin bruise on the left leg. Musculoskeletal: Degenerative arthritis of knees, ROM mildly decreased. No Tenderness to Palpation of Joints or Extremities Neurological: Cranial nerves II-XII grossly intact, DTR 2+/4. No acute focal neurological deficit. Psych/Mental Status: Flat affect forgetful/possible early dementia Assessment & Plan Assessment/Plan (1) Generalized weakness: (2) Multiple falls: (3) UTI (urinary tract infection): (4) Pneumonia: PLAN: Plan 89-year-old gentleman was admitted with feeling generalized weakness with several falls and remaining in the bed since morning of 04/18.Legs were too weak to get out of the bed 1. Abnormal UA- UA with nitrite, leuk esterase, white cells, and bacteria: Urine culture shows no growth. UTI ruled out. 2. #Pneumonia -Imaging: Lung bases on the CT of the abdomen and pelvis with multifocal lower lobe consolidations: Surprisingly patient does not have cough shortness of breath or sputum production or fever but patient has mild dementia. Triple PCR for SARS-CoV-2, flu and RSV are negative. Respiratory panel negative. Urinary antigens negative. Continue IV ceftriaxone and azithromycin. Patient has leukocytosis 18.6 thousand, bili neutrophilia. Slight improvement 04/20 -04/21: Leukocytosis has much improved about 12,800 today. Not having any signs of active fever or pneumonia. Continue IV antibiotics 04/22 leukocytosis has resolved. WBC count normal. Patient doing well. # Multiple falls with mild rhabdomyolysis - Patient reportedly with multiple falls over the past week though patient currently denying states her daughter exaggerate it. PT and OT. CT head C-spine and pelvics did not show acute process. Case management consult CK is 1494. Continue IV fluid slowest. 04/21 CPK also improved about 800 today. Continue physical therapy. Talked to the daughter, he is POA today. She said he fell down 3 times in the last 1 week and wanted rehab. Plan for possible rehab. On a stool softener for mild constipation, has not moved bowels since admission. 04/22: Again I talked to the patient's daughter today. She said his legs suddenly became weak was falling and was also confused. CPK was high which suggest mild rhabdomyolysis which might explain. CPK level improving as mentioned above. Needs physical therapy and rehab. We agreed that patient is not being discharged to home but will be discharged to SNF once we get the bed. Therefore no discharged today # CKD stage IIIa - BUN of 27 and creatinine 1.29 however no baseline available in our system - Was given IV fluid, discontinued. Creatinine improved to 1.06. 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 No ductal dilation or mass. No peripancreatic fluid. Cyst is less than a centimeter. Liver normal size with normal morphology enhancement. No enhancing mass. Cholecystectomy. Normal caliber intra and extrahepatic bile ducts. Liver chemistry shows improvement in total bilirubin 4.19, direct 0.79, improved to 3.61/0.87. Therefore mainly indirect hyperbilirubinemia. AST 56. CK 1494. Injury from hypotension may be related to dysfunction bilirubin conjugation/increased uptake of indirect bilirubin. CT abdomen does not account for indirect hyperbilirubinemia and increased AST. Follow-up with director of manufacturing operations as an outpatient. AST may be from increased rhabdomyolysis/muscle source as CPK is 1494. 04/22: Liver chemistry shows improvement in total bilirubin from 4.19-1.55. Improvement in AST. LDH also elevated 250 favors AST from muscle origin. ALP normal. I feel patient might have acute liver injury from recent inflammation/fall on his rhabdomyolysis with probability of undiagnosed Gilbert's disease. No prior liver chemistry available to review, #Type 2 diabetes mellitus -Glucose checks and sliding scale insulin -Hold home metformin #Hypertension - Given creatinine of 1.29 without known baseline we will hold home lisinopril at this time # Suspected history of gout -Continue home allopurinol Forgetful: CT head shows chronic generalized intracranial volume loss and findings compatible with chronic microvascular ischemic white matter ischemia. Normal white matter cotto differentiation. Posterior fossa grossly unremarkable. No acute intracranial abnormality. I think a CT head and clinically patient forgot to follow, recall registration favors dementia. Possible dementia:TSH is normal. B12 191 low,. Folic acid normal. This was communicated to the patient's daughter as she was concerned that he is losing urinary very quickly. B12 replacement ordered. Advised follow-up with the neurologist as an outpatient for further workup for possible dementia. #DVT ppx: SCDs Microbiology Past 72 Hours 04/19/25 21:25 Urine, Clean Catch Urine Culture - Final Mixed Gram Positive Organisms 04/19/25 23:00 Mucosa - Nasopharyngeal Coronavirus COVID-19 PCR - Final 04/19/25 23:00 Mucosa - Nasopharyngeal Respiratory Panel (PCR) - Final 04/19/25 21:25 Urine, Clean Catch Legionella Antigen - Final 04/19/25 21:25 Urine, Clean Catch Streptococcus pneumoniae Antigen (M - Final 04/19/25 14:10 Mucosa - Nose SARS-CoV-2, Influenza & RSV (PCR) - Final Laboratory Results 04/21/25 15:52: POC Glucose 130 H 04/21/25 23:09: POC Glucose 130 H 04/22/25 05:43: WBC 8.9, RBC 4.68, Hgb 14.9, Hct 44.0, MCV 94.0, MCH 31.8, MCHC 33.9, RDW Std Deviation 47.0 H, RDW Coeff of Mikki 13.6, Plt Count 203, MPV 10.0, Immature Gran % (Auto) 1.700 H, Neut % (Auto) 55.7, Lymph % (Auto) 23.5, [place] % (Auto) 13.6 H, Eos % (Auto) 4.7, Baso % (Auto) 0.8, Absolute Neuts (auto) 5.0, Absolute Lymphs (auto) 2.10, Nucleated RBC % 0, Total Bilirubin 1.55 H, Direct Bilirubin 0.58 H, AST 40 H, ALT 25, Alkaline Phosphatase 81, Total Protein 5.8 L , Albumin 3.2 L, Globulin 2.6 04/22/25 06:46: POC Glucose 146 H 04/22/25 11:07: POC Glucose 157 H 04/22/25 14:44: Vitamin B12 191, Serum Folate 5.62, TSH 2.320 04/22/25 16:06: POC Glucose 139 H Clinical Impression(s) from Imaging Studies Brain CT 04/19/25 14:12 IMPRESSION: 1. No intracranial hemorrhage. No mass effect or midline shift. 2. Chronic involutional and ischemic gliotic white matter changes. 3. No evidence of acute cervical spine fracture or traumatic subluxation. 4. 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 Reading Location: [facility] Cervical Spine CT 04/19/25 14:12 IMPRESSION: 1. No intracranial hemorrhage. No mass effect or midline shift. 2. Chronic involutional and ischemic gliotic white matter changes. 3. No evidence of acute cervical spine fracture or traumatic subluxation. 4. 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 Reading Location: [facility] Abdomen/Pelvis CT 04/19/25 15:45 IMPRESSION: 1. Multifocal lower lobe consolidations may reflect underlying pneumonia. 2. Mild urinary bladder wall thickening with mild surrounding fat stranding compatible with cystitis in the appropriate clinical setting. Please correlate with urinalysis. 3. Diverticulosis without evidence of diverticulitis. 4. Heterogeneous prostatomegaly. 5. 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 Consider MRCP for further characterization. 6. Additional details as discussed above. Reading Location: [facility] Pelvis X-Ray 04/19/25 15:50 IMPRESSION: Degenerative changes are seen of the visualized lower lumbar spine. Residual contrast material is seen within the visualized urinary tract collecting system. At least minimal sacroiliac joint degenerative changes are noted. Mild degenerative changes of the bilateral hip joints are seen, without significant joint space narrowing noted. No evidence of femoral head osteonecrosis. On the solitary view obtained, no fracture or dislocation is seen. If clinical concern persists, short-term follow-up imaging may be obtained to rule out a currently occult fracture. Reading Location: [id number] Chest X-Ray 04/19/25 22:09 IMPRESSION: NO ACUTE FINDINGS. Reading [facility] Charges/Coding Visit Charges Inpatient E&M: 70994 Subs Hosp L2
--- NOTE | 2025-04-22 12:37 | CASEMGMT ---
Addendum entered by Candi Kiser 04/22/25 13:54: *correction. Referral was sent to [facility] (not [facility]). They have accepted. Candi Kiser DC Planning Asst. Original Note: Discharge Planning Referral sent to [facility]. Candi Kiser DC Planning Asst.
--- NOTE | 2025-04-22 13:13 | PHA.DC.MR.R ---
Pharmacy MA Med Reconciliation Pharmacy Service has performed discharge medication reconciliation for this patient. The patient's discharge medication list was reviewed for discrepancies and discrepancies were resolved. Medications at Discharge Home Medications allopurinol 100 mg tablet 200 mg PO DAILY 04/19/25 lisinopril 10 mg tablet 10 mg PO DAILY 04/19/25 metformin 500 mg tablet 500 mg PO BID 04/19/25 Carboxymethylcellulose Sodium [Refresh Tears] 1 drp ophthalmic (eye) Q1H PRN ##0 04/22/25 cefdinir 300 mg capsule 300 mg PO BID 4 days #8 caps 04/22/25 sennosides 8.6 mg-docusate sodium 50 mg tablet (Stimulant Laxative Plus) 2 tab PO BID #0 tabs 04/22/25
--- NOTE | 2025-04-22 13:43 | CHAPLAIN ---
Type of Pastoral Visit _x__ Initial Visit ___ Follow-up Visit ___ On-call Visit ___ General Patient Visit ___ Spiritual Assessment ___ Family Conference ___ Bereavement ___ Rapid Response ___ Code Blue ___ Other (describe below) Pastoral Care Referral From _x__ Patient ___ Family ___ Nurse ___ Physician ___ Gyroscopic Instrument Tester ___ Gun Repair Clerk ___ Other (describe below) Sacrament/Intervention _x__ Active listening ___ Anointing ___ Restorationist ___ Bereavement ___ Communion ___ Mandi exploration ___ _x__ Life review _x__ Prayer ___ Reconciliation ___ Sacrament of Sick _x__ Supportive presence ___ Wedding ___ Other (describe below) Pastoral Comments patient was napping but awoke to his name; when asked about his home, pt states that he is in his home in [place] right now; pt talks about his love of hunting and fishing and some stories of past experiences; pt cannot state what happened to him or give an accurate report on his health; pt is pleasant and willing to talk and have a prayer
--- NOTE | 2025-04-22 13:50 | CASEMGMT ---
Social Work SW spoke w/daughter Kiara in regard to discharge plan. SW explained that [facility] has no beds but [facility] can take pt. Daughter not sure if she wants pt to go to [facility]. SW also spoke w/her about considering TCU here, and SW can make referral. Daughter wants to speak w/family about it and will call SW back, but she is open to a referral to TCU. SW made referral to TCU, pt not accepted however. Pt's daughter called back, expressing much upset and frustration. She states she is aware that pt is discharged and all instructions have been completed, and is very upset. Daughter states that she is going to appeal the discharge. SW attempted to explain to daughter can reach out to physician before she has to go through the appeals process. SW texted physician, he cancelled the discharge. SW let daughter know he did cancel it. We spoke about other options for pt when ready for d/c. Daughter does not want pt to go to [facility]. SW let her know TCU cannot take pt. After much talking and support offered to daughter, daughter will let SW know in the morning other options for SNF. Daughter tearful on the phone, expressed much frustration w/not knowing what is going on w/pt. Much support offered to daughter. Pt's son David Salgado called, SW spoke w/him. David states he is trying to support his sister, Kiara. He states he understands that pt is discharged and pt cannot go home. SW explained that he is not on the contact people so cannot give much information, but can let him know that pt's d/c was cancelled and the plan has never been for home. David brought up the [facility], SW again reiterated that there are no beds and pt cannot stay here until there is a bed available. SW explained to David that family needs to let SW know tomorrow another place they may consider. David asked about pt going to another facility and then transferring to [facility]. SW explained that this may be possible but they would need to illicit the help of both the facility where pt goes and [facility]. SW explained however if pt goes somewhere else they should give the facility a chance. Son states they may consider [facility]. SW explained that the SW will follow up tomorrow w/Kiara for other choices. SW did also ask RN to call Kiara after pt has the ultrasound today. JASS Galvan
--- NOTE | 2025-04-22 14:46 | CASEMGMT ---
Addendum entered by Candi Kiser 04/23/25 11:00: [facility] notified that family wishes to proceed with placement. Candi Kiser DC Planning Asst. Addendum entered by Candi Kiser 04/23/25 08:05: [facility] has accepted. Bed will be available after 1p today (04/23/25). Candi Kiser DC Planning Asst. Original Note: Discharge Planning Referral sent to [facility]. Candi Kiser DC Planning Asst.
--- NOTE | 2025-04-22 14:48 | CASEMGMT ---
Addendum entered by Anay Betancourt 04/22/25 15:24: Social Work [facility] may not have a bed, CHANDLER called daughter Kiara to let her know, and to start thinking about another options in the event that [facility] does not have a bed. Daughter states understanding. JASS Galvan Original Note: Social Work Pt's daughter called CHANDLER back, she would like a referral to [facility]. CHANDLER let d/c merchandise planning manager Candi know. CHANDLER will continue to follow. JASS Galvan
[2025-04-22 16:08] LABS: Vitamin B12 191 pg/mL (180-914)
[2025-04-22 16:10] LABS: FOLATES,SERUM (FOLIC ACID) 5.62 ng/mL (4.60-34.80)
[2025-04-22 16:18] VITALS: BP 139/76; PULSE 83; RESP 16; TEMP 36.9; O2SAT 99
--- NOTE | 2025-04-22 16:49 | NURSING ---
attempted to call Daughter Kiara with an update and went to voicemail
[2025-04-22] MEDS: CARBOXYMETHYLCELLULOSE SODIUM 1 DRP DROPS OPHTHALMIC (17:28)
[2025-04-22 21:28] VITALS: BP 126/64; PULSE 56; RESP 18; TEMP 36.7; O2SAT 98
[2025-04-22] MEDS: Polyethylene Glycol 3350 17 GM PACKET PO (21:35)
[2025-04-22] MEDS: MELATONIN 10 MG TABLET PO (21:35)
[2025-04-22] MEDS: Senna/Docusate Sodium 1 Tablet 2 TABLET PO (21:36)
--- NOTE | 2025-04-23 00:18 | NURSING ---
late entry Pt had told the VTC TECHNICIAN he was ready to go to bed. While she was attempt to assist him, he became upset and stated he can do what he fucking wants when he wants. The [facility]TC TECHNICIAN asked this RN to assist. When this RN entered the room the PT was yelling that everyone was crazy and kept asking where his brother had gone. The pt finally said he wanted to go to bed. Assisted pt to bed and provided a warm blanket. The patient stated he would hire us again.
[2025-04-23 06:25] VITALS: BP 113/62; PULSE 81; RESP 16; TEMP 36.3; O2SAT 99
[2025-04-23 09:07] VITALS: BP 137/75; PULSE 67; RESP 16; TEMP 36.7; O2SAT 100
[2025-04-23] MEDS: Senna/Docusate Sodium 1 Tablet 2 TABLET PO (09:10)
[2025-04-23] MEDS: Polyethylene Glycol 3350 17 GM PACKET PO (09:10)
[2025-04-23] MEDS: Azithromycin 500 MG in 0.9% Normal Saline (250mL Bag) 250 ML 250 MG IV (09:11)
[2025-04-23] MEDS: 0.9% Saline Lock 10 ML Syringe IV ×2 (09:11→16:15)
[2025-04-23 09:13] LABS: AST(SGOT) 31 U/L (<=37); Alanine Aminotransfer ALT/SGPT 25 U/L (<=46); Albumin, Serum 3.2 g/dL (3.4-4.8); Alkaline Phosphatase 79 U/L (40-129); Anion Gap 12 (5-15); BUN 27 mg/dL (4-19); BUN/Creat Ratio 23.9 RATIO (10-20); Bilirubin, Direct 0.41 mg/dL (0.00-0.30); Calcium,Total 8.7 mg/dL (7.6-11.0); Carbon Dioxide 21.8 mmol/L (21.0-32.0); Chloride 106 mmol/L (98-108); Estimated Creatinine Clearance 48.62 ml/min (50-250); Globulin 2.5 g/dL (2.2-4.2); Glucose 142 mg/dL (70-99); Potassium 3.8 mmol/L (3.3-5.1)
--- NOTE | 2025-04-23 10:10 | TREXTCAR_ITS ---
Diet Diet Order/Speech Therapy: INPATIENT Hospital Diet / Speech Therapy Order(s) 04/22/25 07:26 NPO [Diet: Nothing Per Oral] Diet Comments: npo for ultrasound Routine Orders/Code Status Suppository Type: Dulcolax 10mg Suppository Frequency: Daily PRN DC O2, CPAP, BIPAP needs Home O2 Discharge instructions: No Wound(s) Right Diaz: Wound Type: Skin Tear Left 2nd toe: Wound Type: Abrasion Right ankle: Wound Type: Abrasion Therapies Extremity Affected:: Bilateral Lower Physical Therapy: Eval and Treat Occupational Therapy: Eval and Treat Speech Therapy: Eval and Treat Problem/Diagnosis (1) Generalized weakness: Status: Acute Code(s): R53.1 - Weakness (2) Multiple falls: Status: Acute Code(s): R29.6 - Repeated falls (3) UTI (urinary tract infection): Status: Acute Code(s): N39.0 - Urinary tract infection, site not specified (4) Pneumonia: Status: Acute Code(s): J18.9 - Pneumonia, unspecified organism Plan 89-year-old gentleman was admitted with feeling generalized weakness with several falls and remaining in the bed since morning of 04/18.Legs were too weak to get out of the bed 1. Abnormal UA- UA with nitrite, leuk esterase, white cells, and bacteria: Urine culture shows no growth. UTI ruled out. 2. #Pneumonia -Imaging: Lung bases on the CT of the abdomen and pelvis with multifocal lower lobe consolidations: Surprisingly patient does not have cough shortness of breath or sputum production or fever but patient has mild dementia. Triple PCR for SARS-CoV-2, flu and RSV are negative. Respiratory panel negative. Urinary antigens negative. Continue IV ceftriaxone and azithromycin. Patient has leukocytosis 18.6 thousand, bili neutrophilia. Slight improvement 04/20 -04/21: Leukocytosis has much improved about 12,800 today. Not having any signs of active fever or pneumonia. Continue IV antibiotics # Multiple falls with mild rhabdomyolysis - Patient reportedly with multiple falls over the past week though patient currently denying states her daughter exaggerate it. PT and OT. CT head C-spine and pelvics did not show acute process. Case management consult CK is 1494. Continue IV fluid slowest. 04/21 CPK also improved about 800 today. Continue physical therapy. Talked to the daughter, he is POA today. She said he fell down 3 times in the last 1 week and wanted rehab. Plan for possible rehab. On a stool softener for mild constipation, has not moved bowels since admission. # CKD stage IIIa - BUN of 27 and creatinine 1.29 however no baseline available in our system - Was given IV fluid, discontinued. Creatinine improved to 1.06. 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 No ductal dilation or mass. No peripancreatic fluid. Cyst is less than a centimeter. Liver normal size with normal morphology enhancement. No enhancing mass. Cholecystectomy. Normal caliber intra and extrahepatic bile ducts. Liver chemistry shows improvement in total bilirubin 4.19, direct 0.79, improved to 3.61/0.87. Therefore mainly indirect hyperbilirubinemia. AST 56. CK 1494. Injury from hypotension may be related to dysfunction bilirubin conjugation/increased uptake of indirect bilirubin. CT abdomen does not account for indirect hyperbilirubinemia and increased AST. Follow-up with ice skating instructor as an outpatient. AST may be from increased rhabdomyolysis/muscle source as CPK is 1494. #Type 2 diabetes mellitus -Glucose checks and sliding scale insulin -Hold home metformin #Hypertension - Given creatinine of 1.29 without known baseline we will hold home lisinopril at this time # Suspected history of gout -Continue home allopurinol #DVT ppx: SCDs Microbiology Past 72 Hours 04/19/25 21:25 Urine, Clean Catch Urine Culture - Preliminary Culture exhibits no growth. 04/19/25 23:00 Mucosa - Nasopharyngeal Coronavirus COVID-19 PCR - Final 04/19/25 23:00 Mucosa - Nasopharyngeal Respiratory Panel (PCR) - Final 04/19/25 21:25 Urine, Clean Catch Legionella Antigen - Final 04/19/25 21:25 Urine, Clean Catch Streptococcus pneumoniae Antigen (M - Final 04/19/25 14:10 Mucosa - Nose SARS-CoV-2, Influenza & RSV (PCR) - Final Laboratory Results 04/19/25 14:20: WBC 18.6 H, RBC 4.21 L, Hgb 13.7, Hct 39.3 L, MCV 93.3, MCH 32.5 H, MCHC 34.9, RDW Std Deviation 46.8 H, RDW Coeff of Mikki 13.7, Plt Count 155, MPV 10.0, Immature Gran % (Auto) 0.800, Neut % (Auto) 83.6 H, Lymph % (Auto) 7.0 L, [place] % (Auto) 8.4, Eos % (Auto) 0.0, Baso % (Auto) 0.2, Absolute Neuts (auto) 15.6 H, Absolute Lymphs (auto) 1.31, Nucleated RBC % 0, Sodium 139, Potassium 4.1, Chloride 105, Carbon Dioxide 22.2, Anion Gap 12, BUN 27 H, Creatinine 1.29 H, Estim Creat Clear Calc 44.28 L, Est GFR (MDRD) Non-Af 54 L, BUN/Creatinine Ratio 20.5 H, Glucose 122 H, Calcium 8.1, Total Bilirubin 4.19 H, AST 50 H, ALT 18, Alkaline Phosphatase 80, Total Protein 5.1 L, Albumin 3.3 L, Globulin 1.8 L, Albumin/Globulin Ratio 1.8, Lipase 10 L 04/19/25 16:00: Urine Color Yellow, Urine Clarity Sl. Cloudy, Urine pH 6.0, Ur Specific [place] 1.020, Urine Protein 100 H, Urine Glucose (UA) Normal, Urine Ketones 15 H, Urine Occult Blood 250 H, Urine Nitrite Positive H, Urine Bilirubin Negative, Urine Urobilinogen Normal, Ur Leukocyte Esterase 500 H, Urine RBC 10-25 SEEN, Urine WBC 50-100 SEEN, Ur Squamous Epith Cells 0-5 SEEN, Urine Bacteria 3+, Urine Mucus 0 SEEN 04/19/25 20:14: Direct Bilirubin 0.79 H, Total Creatine Kinase 1494 H 04/19/25 21:44: POC Glucose 139 H 04/20/25 05:06: WBC 17.3 H, RBC 4.70, Hgb 15.1, Hct 45.2, MCV 96.2 H, MCH 32.1 H , MCHC 33.4, RDW Std Deviation 48.7 H, RDW Coeff of Mikki 13.7, Plt Count 135 L, MPV 11.0, Immature Gran % (Auto) 0.800, Neut % (Auto) 77.7 H, Lymph % (Auto) 12.2 L, [place] % (Auto) 8.8, Eos % (Auto) 0.2, Baso % (Auto) 0.3, Absolute Neuts (auto) 13.4 H, Absolute Lymphs (auto) 2.11, Nucleated RBC % 0, Differential Comment SCANNED, PT 17.0 H, INR 1.4, Sodium 139, Potassium 4.1, Chloride 105, Carbon Dioxide 21.0, Anion Gap 13, BUN 26 H, Creatinine 1.06, Estim Creat Clear Calc 52.29, Est GFR (MDRD) Non-Af 68, BUN/Creatinine Ratio 24.5 H, Glucose 131 H , Calcium 8.8, Total Bilirubin 3.61 H, Direct Bilirubin 0.87 H, AST 56 H, ALT 18, Alkaline Phosphatase 92, Total Protein 6.2, Albumin 3.5, Globulin 2.7, Albumin/Globulin Ratio 1.3 04/20/25 06:52: POC Glucose 127 H 04/20/25 11:52: POC Glucose 181 H Allergies/Procedures Done in Hospital Allergies No Known Allergies Allergy (Verified 04/19/25 14:07) Type of Care/Length of Stay Estimated LOS: Convalescent Care Less Than 30 days Type of Care Needed: Skilled Rehab Potential: Good Prognosis: Good Additional Orders/Day of Discharge Day of Discharge: 04/22/25 Dietary and Speech Recommendations Dietitian Recommendations/Changes: Will continue liberalized regular diet with consistency/texture as per [employer]. Will continue 120mL ensure plus HP 4 times per day w/ medpass. Monitor blood glucose level and restrict dietary carbohydrate as needed. Trend weights closely and adjust ONS as needed to optimize nutrition and prevent energy/pro depletion. Discharge Plan Admission Admit Date/Time: 04/19/25 18:31 Primary Reason for Your Visit: Multifocal pneumonia, recurrent fall. Attending Provider: Dwaine Lewis Primary Care Provider: Kayla Carvalho Consulting Providers: Monse Hudson Discharge Orders/Prescriptions Prescriptions: New sennosides-docusate sodium [Stimulant Laxative Plus] 8.6-50 mg Tablet 2 tab PO BID Qty: 0 0RF Carboxymethylcellulose Sodium [Refresh Tears] 1 drp ophthalmic (eye) Q1H PRNQty: 0 0RF cefdinir 300 mg capsule 300 mg PO BID 4 Days Qty: 8 0RF Continued metformin 500 mg tablet 500 mg PO BID allopurinol 100 mg tablet 200 mg PO DAILY lisinopril 10 mg tablet 10 mg PO DAILY Referrals / Follow Up: Kayla Carvalho DO [Primary Care Provider, Family Practice] NOT,DEFINED [Non-Staff, None] Samantha Avery PA [Med Staff - [facility] Practice Prof, Gastroenterology] - Within 1 Month Referral Note: Possible Gilbert's disease
--- NOTE | 2025-04-23 10:36 | CASEMGMT ---
Discharge Planning Per SW request, call was placed to [facility] to check on male bed availabiltiy. Lyly simmons/Fern[facility] stated that they will not have a male bed this week. CHANDLER updated. Candi Kiser DC Planning Asst.
--- NOTE | 2025-04-23 10:59 | CASEMGMT ---
Social Work - Discharge Planning - Handoff received from Anay FANG. - Candi Discharge Circuit [employer] Clerk reports patient can be accepted to [facility] SNF. - Received call from Kiara, patient's [facility] ([phone]), inquiring on an update. Updated that patient can be accepted at [facility]. Kiara indicated that had a conversation with provider last evening and Kiara's interpretation of call was that patient could stay at the hospital until a bed at the [facility] became available. Informed will follow up with provider and [facility] and then call Kiara back. Kiara asked to speak to nurse, with SW learning that patient wants to shave. Informed daughter if family brings in an electric razor staff or family can assist patient. Kiara indicated doesn't need to speak to nursing. Updated Mariluz Miranda RN of family's intent to bring in a razor if patient remains at hospital. - Spoke with Candi - discharge planning official - who reached out to [facility]. There are no beds available this week. There is one bed but is being held internally for already established residents who are anticipated to need the bed. Unable to accept outside admissions. - Spoke with Dr. Lewis for clarification of conversation with daughter last evening. Physician in agreement with SNF level of care, agrees to keep patient for a SNF bed and LOC, but patient is ready for discharge. - Called daughter Kiara back to update. - Explained the why behind [facility] not having a bed available and will not have a bed this week, that doctor agrees to SNF level of care, and while [facility] team wants to respect choices have to balance when a person is ready for discharge and a bed available at next level of care (why multiple choices are elicited in times when first choice availability does not coincide with medical readiness). - Kiara accepting of discharge to [facility], but voiced frustration and being upset about this, as wants patient to be at [facility] so as to transition to terminal system operator care. Placement at [facility] would also be easier for the to visit. Kiara tearful, vacillating in emotions on the phone. Supportive listening provided. - Let Kiara know patient likely ready for discharge today. Kiara asked for update on testing done (ultrasound) before patient is moved. - Kiara plans to call rest of family to update, indicating may not be okay with this plan. - Let Kiara know would keep [facility] as Facility of Choice, due to lack of bed at [facility], that will be working on discharge if ordered by doctor but SW will call Kiara before any movement. - Updated Dr. Lewis about daughter requesting update on ultrasound findings. Plan: Skilled level of care, on hospital exemption, to [facility]. SW to keep in touch with daughter on final discharge disposition. -ANNALISA Bonner
--- NOTE | 2025-04-23 12:18 | PCM.DC.SUM ---
Providers Date of Admission: 04/19/25 Primary Care Physician: Dr. Kayla Carvalho, Reason For Visit: UTI, POSSIBLE PNEUMONIA, FREQUENT FALLS Diagnosis Discharge Diagnosis (1) Generalized weakness: Status: Acute Code(s): R53.1 - Weakness (2) Multiple falls: Status: Acute Code(s): R29.6 - Repeated falls (3) UTI (urinary tract infection): Status: Acute Code(s): N39.0 - Urinary tract infection, site not specified (4) Pneumonia: Status: Acute Code(s): J18.9 - Pneumonia, unspecified organism Plan 89-year-old gentleman was admitted with feeling generalized weakness with several falls and remaining in the bed since morning of 04/18.Legs were too weak to get out of the bed 1. Abnormal UA- UA with nitrite, leuk esterase, white cells, and bacteria: Urine culture shows no growth. UTI ruled out. 2. #Pneumonia -Imaging: Lung bases on the CT of the abdomen and pelvis with multifocal lower lobe consolidations: Surprisingly patient does not have cough shortness of breath or sputum production or fever but patient has mild dementia. Triple PCR for SARS-CoV-2, flu and RSV are negative. Respiratory panel negative. Urinary antigens negative. Continue IV ceftriaxone and azithromycin. Patient has leukocytosis 18.6 thousand, bili neutrophilia. Slight improvement 04/20 -04/21: Leukocytosis has much improved about 12,800 today. Not having any signs of active fever or pneumonia. Continue IV antibiotics 04/22: Leukocytosis resolved. As patient did not had much pneumonia like symptoms and cultures were negative therefore total 7 days of antibiotic, 4 more days of Ceftin. Had 3 days of IV ceftriaxone and azithromycin during hospital course. # Multiple falls with mild rhabdomyolysis - Patient reportedly with multiple falls over the past week though patient currently denying states her daughter exaggerate it. PT and OT. CT head C-spine and pelvics did not show acute process. Case management consult CK is 1494. Continue IV fluid slowest. 04/21 CPK also improved about 800 today. Continue physical therapy. Talked to the daughter, he is POA today. She said he fell down 3 times in the last 1 week and wanted rehab. Plan for possible rehab. On a stool softener for mild constipation, has not moved bowels since admission. 9/29: [facility] Continue stool softener # CKD stage IIIa - BUN of 27 and creatinine 1.29 however no baseline available in our system - Was given IV fluid, discontinued. Creatinine improved to 1.06. 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 No ductal dilation or mass. No peripancreatic fluid. Cyst is less than a centimeter. Liver normal size with normal morphology enhancement. No enhancing mass. Cholecystectomy. Normal caliber intra and extrahepatic bile ducts. Liver chemistry shows improvement in total bilirubin 4.19, direct 0.79, improved to 3.61/0.87. Therefore mainly indirect hyperbilirubinemia. AST 56. CK 1494. Indirect hyperbilirubinemia may be related to dysfunction bilirubin conjugation/increased uptake of indirect bilirubin. CT abdomen does not account for indirect hyperbilirubinemia and increased AST. AST may be from increased rhabdomyolysis/muscle source as CPK is 1494. 04/22: Reticulocyte count 1.52 slightly elevated otherwise normal. Immature reticulocyte fraction 11.9%. Patient does not significant hemolysis therefore advised follow with PCP in 1 month with a liver chemistry. Indirect hyperbilirubinemia and mild AST may be related to fall/mild rhabdomyolysis and acute sickness with pneumonia #Type 2 diabetes mellitus -Glucose checks and sliding scale insulin -Hold home metformin #Hypertension - Given creatinine of 1.29 without known baseline we will hold home lisinopril at this time # Suspected history of gout -Continue home allopurinol #DVT ppx: SCDs Discharge medication reconciliation done. Discharge follow-up instructions completed. Discharge process discussed with the patient and all questions were answered to patient's satisfaction. Follow with PCP in 1 to 2 weeks Total time spent, exact 35 minutes on discharge meds reconciliation, examination, coordination of care with nurses and ancillary staff, review of imaging and blood test and discussion with the patient on follow-up instructions. Microbiology Past 72 Hours 04/19/25 21:25 Urine, Clean Catch Urine Culture - Preliminary Culture exhibits no growth. 04/19/25 23:00 Mucosa - Nasopharyngeal Coronavirus COVID-19 PCR - Final 04/19/25 23:00 Mucosa - Nasopharyngeal Respiratory Panel (PCR) - Final 04/19/25 21:25 Urine, Clean Catch Legionella Antigen - Final 04/19/25 21:25 Urine, Clean Catch Streptococcus pneumoniae Antigen (M - Final 04/19/25 14:10 Mucosa - Nose SARS-CoV-2, Influenza & RSV (PCR) - Final Laboratory Results 04/19/25 14:20: WBC 18.6 H, RBC 4.21 L, Hgb 13.7, Hct 39.3 L, MCV 93.3, MCH 32.5 H, MCHC 34.9, RDW Std Deviation 46.8 H, RDW Coeff of Mikki 13.7, Plt Count 155, MPV 10.0, Immature Gran % (Auto) 0.800, Neut % (Auto) 83.6 H, Lymph % (Auto) 7.0 L, [place] % (Auto) 8.4, Eos % (Auto) 0.0, Baso % (Auto) 0.2, Absolute Neuts (auto) 15.6 H, Absolute Lymphs (auto) 1.31, Nucleated RBC % 0, Sodium 139, Potassium 4.1, Chloride 105, Carbon Dioxide 22.2, Anion Gap 12, BUN 27 H, Creatinine 1.29 H, Estim Creat Clear Calc 44.28 L, Est GFR (MDRD) Non-Af 54 L, BUN/Creatinine Ratio 20.5 H, Glucose 122 H, Calcium 8.1, Total Bilirubin 4.19 H, AST 50 H, ALT 18, Alkaline Phosphatase 80, Total Protein 5.1 L, Albumin 3.3 L, Globulin 1.8 L, Albumin/Globulin Ratio 1.8, Lipase 10 L 04/19/25 16:00: Urine Color Yellow, Urine Clarity Sl. Cloudy, Urine pH 6.0, Ur Specific [place] 1.020, Urine Protein 100 H, Urine Glucose (UA) Normal, Urine Ketones 15 H, Urine Occult Blood 250 H, Urine Nitrite Positive H, Urine Bilirubin Negative, Urine Urobilinogen Normal, Ur Leukocyte Esterase 500 H, Urine RBC 10-25 SEEN, Urine WBC 50-100 SEEN, Ur Squamous Epith Cells 0-5 SEEN, Urine Bacteria 3+, Urine Mucus 0 SEEN 04/19/25 20:14: Direct Bilirubin 0.79 H, Total Creatine Kinase 1494 H 04/19/25 21:44: POC Glucose 139 H 04/20/25 05:06: WBC 17.3 H, RBC 4.70, Hgb 15.1, Hct 45.2, MCV 96.2 H, MCH 32.1 H, MCHC 33.4, RDW Std Deviation 48.7 H, RDW Coeff of Mikki 13.7, Plt Count 135 L, MPV 11.0, Immature Gran % (Auto) 0.800, Neut % (Auto) 77.7 H, Lymph % (Auto) 12.2 L, [place] % (Auto) 8.8, Eos % (Auto) 0.2, Baso % (Auto) 0.3, Absolute Neuts (auto) 13.4 H, Absolute Lymphs (auto) 2.11, Nucleated RBC % 0, Differential Comment SCANNED, PT 17.0 H, INR 1.4, Sodium 139, Potassium 4.1, Chloride 105, Carbon Dioxide 21.0, Anion Gap 13, BUN 26 H, Creatinine 1.06, Estim Creat Clear Calc 52.29, Est GFR (MDRD) Non-Af 68, BUN/Creatinine Ratio 24.5 H, Glucose 131 H, Calcium 8.8, Total Bilirubin 3.61 H, Direct Bilirubin 0.87 H, AST 56 H, ALT 18, Alkaline Phosphatase 92, Total Protein 6.2, Albumin 3.5, Globulin 2.7, Albumin/Globulin Ratio 1.3 04/20/25 06:52: POC Glucose 127 H 04/20/25 11:52: POC Glucose 181 H Medications at Discharge Home Medications allopurinol 100 mg tablet 200 mg PO DAILY 04/19/25 lisinopril 10 mg tablet 10 mg PO DAILY 04/19/25 metformin 500 mg tablet 500 mg PO BID 04/19/25 Carboxymethylcellulose Sodium [Refresh Tears] 1 drp ophthalmic (eye) Q1H PRN ##0 04/22/25 cefdinir 300 mg capsule 300 mg PO BID 4 days #8 caps 04/22/25 sennosides 8.6 mg-docusate sodium 50 mg tablet (Stimulant Laxative Plus) 2 tab PO BID #0 tabs 04/22/25 Physical Exam Narrative Seen and examined. No acute issues Patient was admitted multiple falls, \ about 3 times in last 1 week as per the daughter patient might be wrong as he seems more forgetful sometimes confused.. Has bruise on the left leg. Denies cough/sputum production or shortness of breath. No fever. Denies lower urinary tract symptoms including burning. Did not move bowels since admission Physical exam: General: Mild intermittent confusion. Oriented to place, forgetful. BMI 24.2 kg/m? HEENT: Atraumatic, PERRLA, EOMI, Normocephalic. Oral: No Gingival or Mucosal Lesions/ Ulcerations Neck: Supple, No JVD, Negative Carotid Bruits Chest wall/Lungs: Air entry diminished in bilateral lung bases. No wheezing or crepitations Cardiovascular: Sinus rhythm, No M/G/R Abdomen: Bowel Sounds Present, Soft, Non Tender, Non-Distended : No dysuria. Chronic urinary incontinence no renal angle tenderness. No suprapubic tenderness. Extremities: No edema, Capillary Refill Less than 3 Seconds Skin: Superficial skin Bujold right knee Musculoskeletal: Degenerative arthritis of knees, ROM mildly decreased. No Tenderness to Palpation of Joints or Extremities Neurological: Cranial nerves II-XII grossly intact, DTR 2+/4. No acute focal neurological deficit. Psych/Mental Status: Flat affect forgetful/possible early dementia Weight / BMI Weight Weight: 176 lb 5.917 oz Body Mass Index (BMI) 24.2 ABG / Lab / Microbiology Data 04/22/25 05:43 04/20/25 05:06 Laboratory: Laboratory Results - last 24 hr 04/21/25 11:41: POC Glucose 145 H 04/21/25 15:52: POC Glucose 130 H 04/21/25 23:09: POC Glucose 130 H 04/22/25 05:43: WBC 8.9, RBC 4.68, Hgb 14.9, Hct 44.0, MCV 94.0, MCH 31.8, MCHC 33.9, RDW Std Deviation 47.0 H, RDW Coeff of Mikki 13.6, Plt Count 203, MPV 10.0, Immature Gran % (Auto) 1.700 H, Neut % (Auto) 55.7, Lymph % (Auto) 23.5, [place] % (Auto) 13.6 H, Eos % (Auto) 4.7, Baso % (Auto) 0.8, Absolute Neuts (auto) 5.0, Absolute Lymphs (auto) 2.10, Nucleated RBC % 0, Total Bilirubin 1.55 H, Direct Bilirubin 0.58 H, AST 40 H, ALT 25, Alkaline Phosphatase 81, Total Protein 5.8 L, Albumin 3.2 L, Globulin 2.6 04/22/25 06:46: POC Glucose 146 H 04/22/25 11:07: POC Glucose 157 H Microbiology: Microbiology 04/19/25 21:25 Urine, Clean Catch Urine Culture - Final Mixed Gram Positive Organisms 04/19/25 23:00 Mucosa - Nasopharyngeal Coronavirus COVID-19 PCR - Final 04/19/25 23:00 Mucosa - Nasopharyngeal Respiratory Panel (PCR) - Final 04/19/25 21:25 Urine, Clean Catch Legionella Antigen - Final 04/19/25 21:25 Urine, Clean Catch Streptococcus pneumoniae Antigen (M - Final 04/19/25 14:10 Mucosa - Nose SARS-CoV-2, Influenza & RSV (PCR) - Final D/C Instructions DC O2, CPAP, BIPAP Needs Home O2 Discharge instructions: No Meaningful Use Info Meaningful Use Meaningful Use Diagnoses (Choose all that apply): None applicable Discharge Plan Admission Admit Date/Time: 04/19/25 18:31 Primary Reason for Your Visit: Multifocal pneumonia, recurrent fall. Attending Provider: Dwaine Lewis Primary Care Provider: Kayla Carvalho Consulting Providers: Monse Hudson Discharge Orders/Prescriptions Prescriptions: New sennosides-docusate sodium [Stimulant Laxative Plus] 8.6-50 mg Tablet 2 tab PO BID Qty: 0 0RF Carboxymethylcellulose Sodium [Refresh Tears] 1 drp ophthalmic (eye) Q1H PRNQty: 0 0RF cefdinir 300 mg capsule 300 mg PO BID 4 Days Qty: 8 0RF Continued metformin 500 mg tablet 500 mg PO BID allopurinol 100 mg tablet 200 mg PO DAILY lisinopril 10 mg tablet 10 mg PO DAILY Referrals / Follow Up: Kayla Carvalho DO [Primary Care Provider, Family Practice] - Within 1 Month Referral Note: Follow-up liver chemistry in 1 month. Disposition Disposition (needs filled in before D/C Order can be placed): Residential Facility Charges/Coding Visit Charges Inpatient E&M: 91639 Disch Hosp >30min
--- NOTE | 2025-04-23 14:00 | CASEMGMT ---
Social Work 0700 Convalescent exemption form completed vai the [facility]. Copy made for chart and for SNF packet. Patient's daughter Kiara to floor and asking to speak with Ergonomist. Updated to plan for discharge today to [facility]. Daughter okay with this, but reports to know someone and will be working on eventual transfer to [facility]. Educated to transport options, that patient does not appear to meet criteria for ambulance so will have to go with Wheelchair van, which is private pay - approximate cost between 100-200 dollars to [facility]. Also educated that transport by private vehicle is something to be consider. Daughter immediately became upset, yelled in hallway and voicing disbelief. This contract writer offered assurance that not trying to upset the daughter, but only trying to review options available, as for some paying for transportation may be distressing. Daughter calmed, and spoke at appropriate volume. Daughter quickly stated need to call someone and for SW to wait to speak with patient. Daughter came back from call and asked if [facility] can transport. Acknowledged the facility does have transport, but this is typically reserved for already established residents rather than for those who are admitting. Agreed to explore this but if not then will schedule WC Van and this will be private pay. Daughter in agreement. Met with patient, , daughters Kiara and Scarlet, and then partner to Scarlet. Introduced to self and reason fro visit - review of discharge plan. Reviewed with patient recommendations for skilled care and rehab at the SNF, [facility] having a bed and transfer today. Patient reports to be agreeable to plan and for move today. Offered family opportunity to ask questions. Handoff to Candi, Discharge Concrete Float Maker, asking if [facility] transport can be explored first and then WC Van through transport company if not - and will need to update daughter Kiara to outcome of transformation options. Candi will finalized discharge time, and notifications SNF, staff and patient/family. Plan: Skilled level of care, on hospital exemption, to [facility]. -ANNALISA Bonner
--- NOTE | 2025-04-23 15:06 | CASEMGMT ---
Discharge Planning Discharge orders, signed med list, and transport time sent to [facility]. Physicians will transport pt by wheelchair at 5p. Nursing, SW, pt, and his daughter (Kiara) updated. Candi Kiser DC Planning Asst.
[2025-04-23 15:32] VITALS: BP 141/71; PULSE 70; RESP 16; TEMP 36.8; O2SAT 97
--- NOTE | 2025-04-23 17:04 | NURSING ---
pt daughter phoned Kiara and updated transport here to take pt to [facility], per her request. Kiara states thank you
== END 2025-04-23 17:17 | disposition skilled nursing facility (03) | DRG 194 ==
LOC: ED 18:13 → MS3 18:35
PROVIDERS: Admitting Provider Internal Medicine; Emergency Provider Emergency Medicine; PCP Family Medicine; Visit Provider Internal Medicine
DX: J18.9 Pneumonia, unspecified organism (principal); M62.82 Rhabdomyolysis; K86.2 Cyst of pancreas; E11.22 Type 2 diabetes mellitus with diabetic chronic kidney disease; F03.A0 Unspecified dementia, mild, without behavioral disturbance, psychotic disturbance, mood disturbance, and anxiety; N18.31 Chronic kidney disease, stage 3a; I12.9 Hypertensive chronic kidney disease with stage 1 through stage 4 chronic kidney disease, or unspecified chronic kidney disease; K59.00 Constipation, unspecified; M10.9 Gout, unspecified; R29.6 Repeated falls; Z79.84 Long term (current) use of oral hypoglycemic drugs; Z79.899 Other long term (current) drug therapy; Z87.891 Personal history of nicotine dependence
CPT/HCPCS: 36415; 70450; 71046; 72125; 72170; 74177; 76705; 80048; 80053; 80076; 81001; 82248; 82550; 82607; 82746; 82962; 83615; 83690; 84443; 85025; 85045; 85610; 87086; 87088; 87449; 87631; 87633; 87635; 93005; 97116; 97162; 97166; 97530; 97535; 99285; Q9967; A4216; J0696